=== PATIENT | male | born 1955 | race Two or more races ===

== ENCOUNTER 2020-05-19 12:56 | Emergency (ER) | payer OTHER ==
[2020-05-19 13:03] VITALS: TEMP 98.7; BMI 25.4
--- NOTE | 2020-05-19 13:28 | PDOC ---
History of Present Illness - General Chief Complaint: Weakness Stated Complaint: NUMBNESS/TINGLING Time Seen by Provider: 05/19/20 13:28 - History of Present Illness Initial Comments: 05/19/20 15:29 65 M with hx of cricket presented to the ED with legs weakness. Patient had progressive leg weakness for the past 2 weeks. However, he was able to walk and do his soccer exercise until 2 days ago. His left leg got tighten up, affecting the right leg and the way he walk. He fell often during the past two days. No LOC, no head hitting. Patient has been training everyday until the past two days. He denies loss of perineum sansation, midline spinal tenderness, trauma, recent hx of travel to the world or the [place]. Patient denies use of steroid or recent viral infection. He also endorse sharp, tingling sensation on both legs PMH: PSH: none Med: none ALlergy: none SS: denies smoke, alcohol, drug. PCP: none, but has insurance. ROS GENERAL/CONSTITUTIONAL: No fever or chills. No weakness. HEAD, EYES, EARS, NOSE AND THROAT: No change in vision. No ear pain or discharge. No sore throat. CARDIOVASCULAR: No chest pain or shortness of breath RESPIRATORY: No cough, wheezing, or hemoptysis. GASTROINTESTINAL: No nausea, vomiting, diarrhea or constipation. GENITOURINARY: No dysuria, frequency, or change in urination. MUSCULOSKELETAL: No joint or muscle swelling or pain. No neck or back pain. SKIN: No rash NEUROLOGIC: No headache, vertigo, loss of consciousness, +change in strength/sensation. ENDOCRINE: No increased thirst. No abnormal weight change HEMATOLOGIC/LYMPHATIC: No anemia, easy bleeding, or history of blood clots. ALLERGIC/IMMUNOLOGIC: No hives or skin allergy. PE BP 150/80, HR 90s GENERAL: Awake, alert, and fully oriented, in no acute distress HEAD: No signs of trauma, normocephalic, atraumatic EYES: PERRLA, EOMI, sclera anicteric, conjunctiva clear ENT: Auricles normal inspection, hearing grossly normal, nares patent, oropharynx clear without exudates. Moist mucosa NECK: Normal ROM, supple, no lymphadenopathy, JVD, or masses LUNGS: No distress, speaks full sentences, clear to auscultation bilaterally HEART: Regular rate and rhythm, normal S1 and S2, no murmurs, rubs or gallops, peripheral pulses normal and equal bilaterally. ABDOMEN: Soft, nontender, normoactive bowel sounds. No guarding, no rebound. No masses EXTREMITIES : bilateral osteroarteritist knees/crepitus upon bending. No trauma sign. Rigid movement. Normal pulses. normal sensation. NEUROLOGICAL: Cranial nerves II through XII grossly intact. Normal speech, normal gait, no focal sensorimotor deficits SKIN: Warm, Dry, normal turgor, no rashes or lesions noted Past History - Medical History Allergies/Adverse Reactions: Allergies Allergy/AdvReac Type Severity Reaction Status Date / Time No Known Allergies Allergy Verified 05/19/20 13:00 COPD: No Other medical history: RICKETS DISEASE - Surgical History Abdominal Surgery: (HERINA REPIAR ) - Immunization History Immunization Up to Date: Yes - Psycho-Social/Smoking History Smoking History: Never smoked - Substance Abuse Hx (Audit-C & DAST Scrn) How often the patient has a drink containing alcohol: Never Score: In Men: 4 or > Positive; In Women: 3 or > Positive: 0 Screen Result (Pos requires Nsg. Audit-10AR): Negative In the last yr the pt used illegal drug/Rx for NonMed reason: Yes Score: Yes response is considered Positive: 1 Screen Result (Positive result requires Nsg. DAST-10): Positive *Physical Exam - Vital Signs Last Vital Signs Temp Pulse Resp BP Pulse Ox 98.7 F 110 H 18 177/92 H 100 05/19/20 13:00 05/19/20 13:00 05/19/20 13:00 05/19/20 13:00 05/19/20 13:00 ED Treatment Course - LABORATORY CBC & Chemistry Diagram: 05/19/20 14:52 05/19/20 14:52 Medical Decision Making - Medical Decision Making 05/19/20 16:18 Valium 2 was given. CBC is normal . Xray showed no loss of heights, questionable L5, but no tenderness over the midline, low suspiciion of compression. CMP pending. Referred to PCP and ortho and neurologist. 05/19/20 16:44 CMP showed hypophosphotemia, most likely due to ricket. Will replace PO4 by oral supplement. Must follow with PCP later. Discharge - Discharge Information Problems reviewed: Yes Clinical Impression/Diagnosis: Weakness Condition: Good Disposition: HOME - Follow up/Referral Referrals: Len Myers MD [Staff Physician] - Mehul Gonzalez MD [Staff Physician] - Kurtis Hseih DO [Staff Physician] - Adrianna Whaley MD [Staff Physician] - [facility] [place] [facility] [place]] - Patient Discharge Instructions Patient Printed Discharge Instructions: DI for Low Back Pain Additional Instructions: You were seen in the ED for complaints of leg weakness. In the ED you were evaluated with muscles injury, infection, compression. Your results were negative. There does not appear to be an acute need for immediate hospitalization. You are advised to follow up with your Primary Care Physician within 1 week. You were given a referral to PCP Dr. Whaley, or Dr. Myers . Bone Doctor Dr. Hsieh. Brain doctor Dr. Gonzalez. You should use tylenol OTC for pain control, or motrin over the counter. Please read the label, and don't overdose. Return to the ED immediately if you experience worsening pain, unable to walk, loss of sensation over the legs or the perineum, dizziness. - Post Discharge Activity
[2020-05-19] MEDS ORDERED: SODIUM CHLORIDE 0.9% 500 ML INFUS.BAG IV ONE (14:32)
[2020-05-19] MEDS ORDERED: diazePAM 2 MG TABLET PO ONE (14:45)
[2020-05-19] MEDS ORDERED: diazePAM 2 MG TABLET ONE (14:57)
--- NOTE | 2020-05-19 15:18 | PDOC ---
Documentation entered by Erinn Rock SCRIBE, acting as scribe for Lisa Vu MD. Lisa Vu MD: This documentation has been prepared by the freddyibePranav Ana, SCRIBE, under my direction and personally reviewed by me in its entirety. I confirm that the documentation accurately reflects all work, treatment, procedures, and medical decision making performed by me. Attending Attestation - Resident Resident Name: Jose J Stuart - ED Attending Attestation I have performed the following: I have examined & evaluated the patient, The case was reviewed & discussed with the resident, I agree w/resident's findings & plan, Exceptions are as noted - HPI HPI: 05/19/20 13:30 65-year-old male history of rickets disease here today complaining of lower extremity pain. 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 He states that over the last few weeks the pain is become more severe he noticed it often from sitting prolonged periods are going from a sitting to a standing he f eels the pain shoots down into his thigh he does also get tingling in bilateral toes no new bowel or bladder incontinence no fevers no chills no trauma no new medications patient has never seen an orthopedist denies any hematuria or changes to his urine was able to ambulate today to the ED denies pain currently but says that the pain comes and goes with movement.. Patient denies: Allergies: NKDA 05/19/20 15:14 - Physicial Exam PE: 05/19/20 15:15 Awake alert no acute distress lungs are clear bilaterally heart is regular 30 murmurs rubs or gallops abdomen is soft and nontender pelvis is stable patient has full range of motion of bilateral hips. Bilateral knees are noticed for arthritic deformities and bulging joints there is crepitus on flexion-extension Anne Flood able to flex the knee to 90 degrees however no effusion noted no tension or clonus noted in his calf or thigh muscle. Ankles have full range of motion bilaterally patient has 2+ DP PT pulses bilaterally. Neurologically his sensation is intact throughout bilateral lower extremities with absence of saddle anesthesia. No midline spinal tenderness the TLS spine - Medical Decision Making 05/19/20 15:16 65-year-old male history of rickets here complaining of low back pain and bilateral hip joint pain radiating to his thighs differential includes a thigh spasm or muscle spasm possibly from electrolyte abnormalities related to his rickets considerations for hyper hypokalemia hypocalcemia rhabdo also considered due to his extensive workouts states he works out up to 6 hours a day sometimes plan CBC CMP total CK x-rays of his LS spine and pelvis. Patient will also be likely referred to an orthopedist as he has likely chronic joint destruction in early premature arthritis secondary to his rickets disease. Given Valium for muscle relaxation Discharge - Discharge Information Problems reviewed: Yes Clinical Impression/Diagnosis: Weakness Condition: Good Disposition: HOME - Follow up/Referral Referrals: [facility] [place] [facility] [place] [Provider Group] Len Myers MD [Staff Physician] - Mehul Gonzalez MD [Staff Physician] - Kurtis Hsieh DO [Staff Physician] - Adrianna Whaley MD [Staff Physician] - - Patient Discharge Instructions Patient Printed Discharge Instructions: DI for Low Back Pain Additional Instructions: You were seen in the ED for complaints of leg weakness. In the ED you were evaluated with muscles injury, infection, compression. Your results were negative. There does not appear to be an acute need for immediate hospitalization. You are advised to follow up with your Primary Care Physician within 1 week. You were given a referral to PCP Dr. Whaley, or Dr. Myers . Bone Doctor Dr. Hsieh. Brain doctor Dr. Gonzalez. You should use tylenol OTC for pain control, or motrin over the counter. Please read the label, and don't overdose. Return to the ED immediately if you experience worsening pain, unable to walk, loss of sensation over the legs or the perineum, dizziness. - Post Discharge Activity
[2020-05-19 15:38] LABS: BASO % 0.6 % (0-2.0); HEMATOCRIT 42.4 % (35.4-49); HEMOGLOBIN 13.9 GM/dL (11.7-16.9); LYMPH % 19.7 % (8-40); MCHC 32.9 g/dl (32.0-35.9); MEAN CELL VOLUME 94.3 fl (80-96); MEAN PLT VOLUME 8.4 fl (7.5-11.1); MONO % 9.3 % (3.8-10.2); NEUT % 69.4 % (42.8-82.8); PLATELET COUNT 280 K/MM3 (134-434); RDW 14.2 % (11.9-15.9)
[2020-05-19 16:23] LABS: ALBUMIN 3.8 g/dl (3.4-5.0); BILIRUBIN,TOTAL 0.5 mg/dL (0.2-1); BLOOD UREA NITROGEN 11.8 mg/dL (7-18); CREATININE 0.7 mg/dL (0.55-1.3); MAGNESIUM 2.2 mg/dL (1.8-2.4); PHOSPHOROUS 1.5 mg/dL (2.5-4.9); POTASSIUM 4.2 mmol/L (3.5-5.1); TOT PROT 7.1 g/dl (6.4-8.2)
[2020-05-19] MEDS ORDERED: NAPH,MB-DB/K PH,MBDB POWDER PACKET PO ONE (16:42)
[2020-05-19] MEDS ORDERED: NAPH,MB-DB/K PH,MBDB POWDER PACKET ONE (16:59)
[2020-05-19 18:06] VITALS: BP 146/78; PULSE 70
--- NOTE | 2020-05-21 18:43 | EKG ---
Test Reason : Blood Pressure : / mmHG Vent. Rate : 088 BPM Atrial Rate : 088 BPM P-R Int : 178 ms QRS Dur : 092 ms QT Int : 358 ms P-R-T Axes : 063 012 027 degrees QTc Int : 433 ms NORMAL SINUS RHYTHM LEFT ATRIAL ENLARGEMENT BORDERLINE ECG NO PREVIOUS ECGS AVAILABLE Confirmed by MD MIA, HENOK ([id number]) on 05/21/2020 6:43:13 PM Referred By: Confirmed By:HENOK BELLAMY MD
== END 2020-05-19 18:05 | disposition home or self-care (01) ==
LOC: JER 12:56
DX: M62.81 Muscle weakness (generalized) (principal)
CPT/HCPCS: 36415; 72100-TC-FY; 80053; 82550; 83735; 84100; 84443; 85025; 93005; 93010; 99285-25

== ENCOUNTER 2020-06-20 14:09 | Emergency (ER) | payer OTHER ==
--- NOTE | 2020-06-20 14:17 | PDOC ---
Rapid Medical Evaluation Time Seen by Provider: 06/20/20 14:16 Medical Evaluation: Allergies Allergy/AdvReac Type Severity Reaction Status Date / Time No Known Allergies Allergy Verified 05/19/20 13:00 06/20/20 14:17 I have performed a brief in-person evaluation of this patient The patient presents with a chief complaint of:h/o cricket, here w/ complaint that he is unable to bear weight 2/2 b/l LE weakness and sensory changes. Was seen by outside neuro this am and sent in for Thoracic and LS MRI r/o cord compression (pt has MD's note on his person). Pt was seen in ER 05/25 w/ similar complaints and had LS xray which showed some wedging and minimal central compression. No incentive or saddle anesthesia at this time Pertinent physical exam findings:sitting in wheelchair I have ordered the following:labs The patient will proceed to the ED for further evaluation 06/20/20 14:19 Discharge Disposition - Diagnosis Unable to ambulate - Referrals - Patient Instructions - Post Discharge Activity
[2020-06-20 14:36] VITALS: BMI 22.8
--- NOTE | 2020-06-20 15:25 | PDOC ---
History of Present Illness - General Chief Complaint: Revisit,Radiology Variance Stated Complaint: SENT BY PCP/THORACIC SPINE Time Seen by Provider: 06/20/20 14:16 - History of Present Illness Initial Comments: 06/20/20 15:10 HPI 65y/o M hx of rickets, presents to the ED with bilateral lower extremity weakness/tingling. Pt fell 3 months ago, and initially had numbness and tingling confined to his left buttock and left upper thigh.Since then his symptoms have spread to both extremities and he has had increased difficulty walking. requiring assistance to ambulate in the last 2-3weeks, and experiencing erectile dysfunction pt endorses saddle anesthesia,lower back tightness. denies: bowel/bladder incontinence, fevers, chills,abdominal pain, nausea, vomting PMHx: as noted above ROS: as noted SHx: Denies Etoh, IVDA, tobacco use Allergies: NKDA ROS: GENERAL/CONSTITUTIONAL: No fever or chills. No weakness. HEAD, EYES, EARS, NOSE AND THROAT: No change in vision. No ear pain or discharge. No sore throat. CARDIOVASCULAR: No chest pain or shortness of breath RESPIRATORY: No cough, wheezing, or hemoptysis. GASTROINTESTINAL: No nausea, vomiting, diarrhea or constipation. GENITOURINARY: No dysuria, frequency, or change in urination. MUSCULOSKELETAL: No joint or muscle swelling or pain. No neck or back pain. SKIN: No rash NEUROLOGIC: No headache, vertigo, loss of consciousness, or change in strength/sensation. ENDOCRINE: No increased thirst. No abnormal weight change HEMATOLOGIC/LYMPHATIC: No anemia, easy bleeding, or history of blood clots. ALLERGIC/IMMUNOLOGIC: No hives or skin allergy. PE: GENERAL: Awake, alert, and fully oriented, in no acute distress HEAD: No signs of trauma, normocephalic, atraumatic EYES: PERRLA, EOMI, sclera anicteric, conjunctiva clear ENT: Auricles normal inspection, hearing grossly normal, nares patent, oropharynx clear without exudates. Moist mucosa NECK: Normal ROM, supple, no lymphadenopathy, JVD, or masses LUNGS: No distress, speaks full sentences, clear to auscultation bilaterally HEART: Regular rate and rhythm, normal S1 and S2, no murmurs, rubs or gallops, peripheral pulses normal and equal bilaterally. ABDOMEN: Soft, nontender, normoactive bowel sounds. No guarding, no rebound. No masses EXTREMITIES : Normal inspection, Normal range of motion, no edema. No clubbing or cyanosis RECTAL: rectal tone intact. NEUROLOGICAL: Cranial nerves II through XII grossly intact. no spinal tenderness. requires assistance to ambulate. saddle anesthesia. negative SLR. 5/5 strength lower extremities SKIN: Warm, Dry, normal turgor, no rashes or lesions noted MDM DDx including but not limited to: cauda equina, conus medullaris, spinal cord compression Workup: labs, MRI (thoracic & lumbar) TX: Scores - HEART score - EKG: normal sinus rhythm, HR bpm, FL ms, QRS ms, QTc ms ED course meds: Re-assessment: PT left the ED AMA angry and irritated because he had been waiting "too long" for MRI radiology report requested to have his IV pulled out and left pt ambulating with assistance of his partner. Past History - Medical History Allergies/Adverse Reactions: Allergies Allergy/AdvReac Type Severity Reaction Status Date / Time No Known Allergies Allergy Verified 06/20/20 14:17 Home Medications: Ambulatory Orders NK [No Known Home Medication] 06/20/20 COPD: No - Surgical History Abdominal Surgery: (HERINA REPIAR INFANT) - Immunization History Immunization Up to Date: Yes - Psycho-Social/Smoking History Smoking History: Smoker current status UNK *Physical Exam - Vital Signs Last Vital Signs Temp Pulse Resp BP Pulse Ox 78 20 189/72 H 98 06/20/20 14:19 06/20/20 14:19 06/20/20 14:19 06/20/20 14:19 ED Treatment Course - LABORATORY CBC & Chemistry Diagram: 06/20/20 15:25 06/20/20 14:22 Discharge - Discharge Information Problems reviewed: Yes Clinical Impression/Diagnosis: Anesthesia Condition: Guarded Disposition: AGAINST MEDICAL ADVICE - Follow up/Referral - Patient Discharge Instructions - Post Discharge Activity
--- NOTE | 2020-06-20 15:32 | PDOC ---
Documentation entered by Milana Castanon SCRIBE, acting as scribe for Nacho Casillas MD. Nacho Casillas MD: This documentation has been prepared by the Kina sandoval Brenda, SCRIBE, under my direction and personally reviewed by me in its entirety. I confirm that the documentation accurately reflects all work, treatment, procedures, and medical decision making performed by me. Attending Attestation - Resident Resident Name: Yoni Hernández - ED Attending Attestation I have performed the following: I have examined & evaluated the patient, The case was reviewed & discussed with the resident, I agree w/resident's findings & plan, Exceptions are as noted - HPI HPI: 65 years old past medical history significant for rickets presents to the ED with of lower extremity weakness and tingling, this has been going on for 3 months. He fell 3 months ago and is had some tingling to his left buttock and numbness has progressively worsening. No incontinence endorses saddle anesthesia and low back tightness. Sent to emergency department by his neurologist for MRI thoracic and lumbar spine. Symptoms are moderate and gradually worsening over the last 3 months. Endorses erectile dysfunction. - Physicial Exam PE: 06/20/20 15:32 Vitals: Triage Vital signs reviewed General Appearance: No acute distress, well nourished well developed, Head: Atraumatic, Eyes: Pupils equal reactive round, extraocular movement intact Cardiac: Regular rate and rhythym, no murmurs, no rubs, no gallops, Lungs: Clear to auscultation bilateral, good air movement bilaterally, Abdomen: Soft, non distended, normal bowel sounds, non tender to palpation Extremities: Full range of motion to all extremities, no cyanosis, clubbing, or edema Skin: Warm and dry, no rashes or lesions, no rash, no petechiae Neuro: AOX3; cranial Nerves 2-12 grossly intact, strength intact to all extremities, sensation intact to all extremities, Slightly decreased sensation around groin and perineum, Deep tendon reflexes intact Psych: Normal mood, normal affect - Medical Decision Making 06/20/20 15:33 65 years old with weakness when ambulating and progressively worsening decreased sensation around perineum sent to ED for MRI of lumbar spine and thoracic spine to rule out cord involvement. No weakness on lower extremity exam in bed, reflexes intact, good rectal tone, + saddle anesthesia, difficulty with ambulation (chronic/gradual progressive over 3 months) Dr. Napier to follow up MRI and reassess 06/20/20 19:21 Discharge - Discharge Information Problems reviewed: Yes Clinical Impression/Diagnosis: Anesthesia, Weakness Condition: Guarded Disposition: AGAINST MEDICAL ADVICE - Follow up/Referral - Patient Discharge Instructions - Post Discharge Activity
--- OUTSIDE RECORDS SUMMARY | 2020-06-20 16:29 | XMS ---
:1955 Author Organization [facility] Support Name Relationship Address Phone LILY COPELAND/OTHER IRENE SAEED [address] [address] RE Unavailable Unavailable Unavailable DAVID CHAMBERS FAMILY/OTHER [address] [id number] [place] [address] DAVID CHAMBERS Other [facility] [place] [address] Re-disclosure Warning The records that you are about to access may contain information from federally- assisted alcohol or drug abuse programs. If such information is present, then the following federally mandated warning applies: This information has been disclosed to you from records protected by federal confidentiality rules (42 CFR part 2). The federal rules prohibit you from making any further disclosure of this information unless further disclosure is expressly permitted by the written consent of the person to whom it pertains or as otherwise permitted by 42 CFR part 2. A general authorization for the release of medical or other information is NOT sufficient for this purpose. The Federal rules restrict any use of the information to criminally investigate or prosecute any alcohol or drug abuse patient.The records that you are about to access may contain highly sensitive health information, the redisclosure of which is protected by Article 27-F of the [facility] Public Health law. If you continue you may haveaccess to information: Regarding HIV / AIDS; Provided by facilities licensed or operated by the [facility] Office of Mental Health; or Provided by the [facility] Office for People With Developmental Disabilities. If such information is present, then the following [facility] mandated warning applies: This information has been disclosed to you from confidential records which are protected by state law. State law prohibits you from making any further disclosure of this information without the specific written consent of the person to whom it pertains, or as otherwise permitted by law. Any unauthorized further disclosure in violation of state law may result in a fine or mcc sentence or both. A general authorization for the release of medical or other information is NOT sufficient authorization for further disclosure. Insurance Providers Payer name Policy type Policy ID Covered Covered alliance party's Policy P aby / Coverage alliance party ID relationship to Guerra Inf ormation type guerra [facility] [id number] CARE
[2020-06-20 16:39] LABS: INR 0.94 (0.83-1.09); PROTHROMBIN TIME (PATIENT) 11.1 SEC (9.7-13.0)
[2020-06-20 16:40] LABS: BASO % 0.6 % (0-2.0); EOS % 0.7 % (0-4.5); HEMOGLOBIN 14.4 GM/dL (11.7-16.9); LYMPH % 20.4 % (8-40); MCH 31.4 pg (25.7-33.7); MCHC 33.5 g/dl (32.0-35.9); MEAN CELL VOLUME 93.9 fl (80-96); MEAN PLT VOLUME 8.3 fl (7.5-11.1); NEUT % 70.3 % (42.8-82.8); PLATELET COUNT 320 K/MM3 (134-434); RBC 4.57 M/mm3 (4.00-5.60); RDW 13.9 % (11.9-15.9); WHITE BLOOD COUNT 8.8 K/mm3 (4.0-10.0)
[2020-06-20 16:49] LABS: ALBUMIN 4.3 g/dl (3.4-5.0); BILIRUBIN,TOTAL 0.3 mg/dL (0.2-1); BLOOD UREA NITROGEN 16.2 mg/dL (7-18); CALCIUM 9.3 mg/dL (8.5-10.1); CREATININE 0.9 mg/dL (0.55-1.3); POTASSIUM 4.8 mmol/L (3.5-5.1); TOT PROT 8.1 g/dl (6.4-8.2)
[2020-06-20 17:39] VITALS: BP 142/82; PULSE 72; TEMP 98.1
[2020-06-20 17:56] LABS: EPI CELLS 4 /uL (0-25.1); HYALINE CASTS 0 /uL (0-3.1); URINE APPEARANCE CLEAR; URINE BACTERIA 11 /uL (0-1359); URINE BILIRUBIN NEGATIVE (NEGATIVE); URINE COLOR YELLOW; URINE GLUCOSE (UA) NEGATIVE (NEGATIVE); URINE KETONE NEGATIVE (NEGATIVE); URINE LEUK ESTERASE TRACE (NEGATIVE); URINE NITRITE NEGATIVE (NEGATIVE); URINE PROTEIN NEGATIVE (NEGATIVE); URINE RBC 257 /uL (0-23.9); URINE UROBILINOGEN 0.2 mg/dL (0.2-1.0); URINE WBC 11 /uL (0-25.8)
== END 2020-06-20 21:44 | disposition left against medical advice (07) ==
LOC: JER 14:09
DX: R20.0 Anesthesia of skin (principal)
CPT/HCPCS: 36415; 72157-TC; 72158-TC; 80053; 81003; 85025; 85610; 86850; 86900; 86901; 99285-25; A9579

== ENCOUNTER 2020-06-26 07:52 | Inpatient (IN) | payer OTHER ==
[2020-06-26 07:58] VITALS: BMI 26.9
--- NOTE | 2020-06-26 08:13 | PDOC ---
History of Present Illness - General Chief Complaint: Chronic pain Stated Complaint: BACK PAIN Time Seen by Provider: 06/26/20 08:01 - History of Present Illness Initial Comments: 06/26/20 09:17 65 years old re-presents to the emergency department for spinal cord compression. Patient has had 3 months history of progressively worsening weakness when ambulating saddle anesthesia and erectile dysfunction was sent to the emergency department last Friday by his neurologist Dr. Rene for MRI. Patient signed out of hospital AGAINST MEDICAL ADVICE prior to receiving results. 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 Was able to return today. No progression of symptoms per the patient since his MRI on Friday. Neurosurgery to be consulted. Denies fever chills chest pain shortness of breath nausea vomiting diarrhea Past History - Medical History Allergies/Adverse Reactions: Allergies Allergy/AdvReac Type Severity Reaction Status Date / Time No Known Allergies Allergy Verified 06/26/20 07:54 Home Medications: Ambulatory Orders NK [No Known Home Medication] 06/20/20 COPD: No - Surgical History Abdominal Surgery: ([facility]) - Immunization History Immunization Up to Date: Yes - Psycho-Social/Smoking History Smoking History: Never smoked Have you smoked in the past 12 months: No - Substance Abuse Hx (Audit-C & DAST Scrn) How often the patient has a drink containing alcohol: Never Score: In Men: 4 or > Positive; In Women: 3 or > Positive: 0 Screen Result (Pos requires Nsg. Audit-10AR): Negative In the last yr the pt used illegal drug/Rx for NonMed reason: No Score: Yes response is considered Positive: 0 Screen Result (Positive result requires Nsg. DAST-10): Negative Review of Systems - Review of Systems Comments:: 06/26/20 09:17 ROS: A complete review of 10 out of 10 review of systems is taken and is negative apart from what is previously mentioned below and in the HPI. *Physical Exam - Vital Signs Last Vital Signs Temp Pulse Resp BP Pulse Ox 98.5 F 88 18 158/84 100 06/26/20 07:54 06/26/20 07:54 06/26/20 07:54 06/26/20 07:54 06/26/20 07:54 - Physical Exam 06/26/20 09:17 Vitals: Triage Vital signs reviewed General Appearance: No acute distress, well nourished well developed, Head: Atraumatic, Cardiac: Regular rate and rhythym, Lungs: Clear to auscultation bilateral, good air movement bilaterally, Abdomen: Soft, non distended, normal bowel sounds, non tender to palpation Extremities: Full range of motion to all extremities, no cyanosis, clubbing, or edema Skin: Warm and dry, no rashes or lesions, no rash, no petechiae Neuro: AOX3; cranial Nerves 2-12 grossly intact, strength intact to all extremities, sensation intact to all extremities, Gait weakness with ambulation, positive saddle anesthesia Psych: Normal mood, normal affect ED Treatment Course - LABORATORY CBC & Chemistry Diagram: 06/26/20 08:49 06/26/20 08:49 Medical Decision Making - Medical Decision Making 06/26/20 09:18 65 years old has been n.p.o. after midnight not on anticoagulation presents with MRI findings of cord compression. Symptoms of been gradual progressive over the last 3 months Was started over the weekend on Decadron by his neurologist Dr. Calabrese neurosurgery consulted 7:30 AM Plan is OR today Preop labs ordered Case discussed with hospitalist We will admit to medicine for further management and definitive surgery today. Discharge - Discharge Information Problems reviewed: Yes Clinical Impression/Diagnosis: Cord compression - Admission Yes - Follow up/Referral - Patient Discharge Instructions - Post Discharge Activity
[2020-06-26 09:11] LABS: INR 0.88 (0.83-1.09); PROTHROMBIN TIME (PATIENT) 10.4 SEC (9.7-13.0)
[2020-06-26 09:14] LABS: ACTIVATED PTT 29.2 SECONDS (25.2-36.5)
[2020-06-26] MEDS ORDERED: SODIUM CHLORIDE 1,000 ML IV SCH (09:15)
--- OUTSIDE RECORDS SUMMARY | 2020-06-26 09:15 | XMS ---
:1955 Author Organization [facility] Support Name Relationship Address Phone LILY COPELAND/OTHER IRENE SAEED [address] [address] RE Unavailable Unavailable Unavailable DAVID CHAMBERS FAMILY/OTHER [id number] [place] [address] DAVID CHAMBERS Other [facility] [place] [address] Re-disclosure Warning The records that you are [...] is protected by Article 27-F of the [facility] Public Health law. If you continue you may haveaccess to information: Regarding HIV / AIDS; Provided by facilities licensed or operated by the [facility] Office of Mental Health; or Provided by the [facility] Office for People With Developmental Disabilities. If such information is present, then the following [facility] mandated warning applies: This information has [...] law may result in a fine or shelter sentence or both. A general authorization for the release of medical or other information is NOT sufficient authorization for further disclosure. Insurance Providers Payer name Policy type Policy ID Covered Covered republican's Policy P aby / Coverage republican ID relationship to [employer] ormation type [facility] [id number] 0000 CARE
[2020-06-26 09:33] LABS: BILIRUBIN,TOTAL 0.4 mg/dL (0.2-1); BLOOD UREA NITROGEN 19.2 mg/dL (7-18); CALCIUM 9.2 mg/dL (8.5-10.1); CREATININE 0.8 mg/dL (0.55-1.3); POTASSIUM 4.4 mmol/L (3.5-5.1)
[2020-06-26 10:13] LABS: BASO % 0.1 % (0-2.0); HEMOGLOBIN 13.4 GM/dL (11.7-16.9); LYMPH % 7.6 % (8-40); MCH 30.9 pg (25.7-33.7); MCHC 32.8 g/dl (32.0-35.9); MEAN CELL VOLUME 94.4 fl (80-96); NEUT % 85.3 % (42.8-82.8); PLATELET COUNT 344 K/MM3 (134-434); RBC 4.34 M/mm3 (4.00-5.60); RDW 13.9 % (11.9-15.9); WHITE BLOOD COUNT 15.1 K/mm3 (4.0-10.0)
--- NOTE | 2020-06-26 11:14 | HP ---
CHIEF COMPLAINT: PCP: HISTORY OF PRESENT ILLNESS: 65M w/ pmh of Rickets presents to [facility] for concern of increasing severity BLE dysfunction, with emergent imaging(06/20/20) indicating cord compression of the T-spine. Was initially seen at [facility] on 05/19/20 for leg tightness, and episodes of falling. Was told it was related to knee OA and told to fu with a PCP and a neurologist. Has fallen 3x in the past weeks. First when playing soccer , performing cross-over, then fell with play-tusseling with son, then fell when using the restroom. Has had leg weakness when planted for push-ups, leg lunges, and now even walking. Thinks his gait is wobbly, feels like hes walking on a ball. Has shooting pain down legs. Has numbness in lower back. Has loose knees d/t to rickets. Has tightness in the buttocks. Denies change in BUE strength. In the past, has engaged in multiple years of contact sports such as martial arts(fell hard 20ys prior, with trunk pain), football(grade schoole to highschool), boxing([age]y/o), wrestling(high school for 4-5ys). Has been playing soccer for 3ys. Denies fall from height, MVC. Denies decrease in leg bulk. Feels like urine is trapped inside, has urinary hestiancy. Denies changes in BM. Has decreased sensation in the perineum while wiping. Thinks his erection will go and come away during the act of coitus. Has been taking dexamethasone by outpatient neurology(Beatrice?), which helped with the buttocks tightness. Has been quarntining at home. 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 -06/20/20: sent in from Neuro(Beatrice?) for Tspine/Lspine MRI to r/o cord compression. AMA after waiting so long -06/22/20: had [place] [employer] contact pt for MRI results. Pt has 7y/o autistic son and could not leave job, so childcare could not be arranged until Friday ER course was notable for: -98.5F, 88, 158/84, 18 -WBC 15.1 -AP 126 -consulted David Bear -XR Lspine(05/19/20): some vertebral wedging of lower thoracic and upper lumbar spine -MRI T-spine/L-spine(05/20/20): multilevel significant b/l ligamentum flavum hypertrophy, resulting in severe canal stenosis at T8-T9 level, displacing the thoracic cord w/ cord compression and minimal intradural cord Recent Travel: denies PAST MEDICAL HISTORY: rickets PAST SURGICAL HISTORY: b/l hernia repair Social History: Smoking: daily MJ Alcohol: denies Drugs: denies Allergies No Known Allergies Allergy (Verified 06/26/20 07:54) HOME MEDICATIONS: Home Medications Medication Instructions Recorded NK [No Known Home Medication] 06/20/20 REVIEW OF SYSTEMS CONSTITUTIONAL: Absent: fever, chills, diaphoresis, generalized weakness, malaise, loss of appetite, weight change HEENT: Absent: rhinorrhea, nasal congestion, throat pain, throat swelling, difficulty swallowing, mouth swelling, ear pain, eye pain, visual changes CARDIOVASCULAR: Absent: chest pain, syncope, palpitations, irregular heart rate, lightheadedness, peripheral edema RESPIRATORY: Absent: cough, shortness of breath, dyspnea with exertion, orthopnea, wheezing, stridor, hemoptysis GASTROINTESTINAL: Absent: abdominal pain, abdominal distension, nausea, vomiting, diarrhea, constipation, melena, hematochezia GENITOURINARY: urinary hesitancy Absent: dysuria, frequency, urgency, hematuria, flank pain, genital pain MUSCULOSKELETAL: Absent: myalgia, arthralgia, joint swelling, back pain, neck pain SKIN: Absent: rash, itching, pallor HEMATOLOGIC/IMMUNOLOGIC: Absent: easy bleeding, easy bruising, lymphadenopathy, frequent infections ENDOCRINE: Absent: unexplained weight gain, unexplained weight loss, heat intolerance, cold intolerance NEUROLOGIC: decr sensation of perineum, weakness of BLE Absent: headache, focal weakness or paresthesias, dizziness, unsteady gait, seizure, mental status changes, bladder or bowel incontinence PSYCHIATRIC: Absent: anxiety, depression, suicidal or homicidal ideation, hallucinations. PHYSICAL EXAMINATION Vital Signs - 24 hr 06/26/20 07:54 Temperature 98.5 F Pulse Rate 88 Respiratory 18 Rate Blood Pressure 158/84 O2 Sat by Pulse 100 Oximetry (%) GENERAL: Awake, alert, and fully oriented, in no acute distress. Muscular bulk of upper trunk and BUE. Short stature HEAD: Normal with no signs of trauma. EYES: Pupils equal, round and reactive to light, extraocular movements intact, sclera anicteric, conjunctiva clear. No lid lag. EARS, NOSE, THROAT: Ears normal, nares patent, oropharynx clear without exudates. Moist mucous membranes. NECK: Normal range of motion, supple without lymphadenopathy, JVD, or masses. LUNGS: Breath sounds equal, clear to auscultation bilaterally. No wheezes, and no crackles. No accessory muscle use. HEART: Regular rate and rhythm, normal S1 and S2 without murmur, rub or gallop. ABDOMEN: Soft, nontender, not distended, normoactive bowel sounds, no guarding, no rebound, no masses. Suprapubic fullness with palpation Rectal: loss of anal wink, weak rectal tone; firm stool felt in rectal vault MUSCULOSKELETAL: Normal range of motion at all joints. No bony deformities or tenderness. No CVA tenderness. UPPER EXTREMITIES: 2+ pulses, warm, well-perfused. No cyanosis. No clubbing. No peripheral edema. LOWER EXTREMITIES: 2+ pulses, warm, well-perfused. No calf tenderness. No peripheral edema. Decreased Leg bulk NEUROLOGICAL: Cranial nerves II-XII intact. Weakness 4/5 of BLE in hip flexion/extension, knee flexion/extension. Patellar reflex intact. Upgoing babinski relfexes b/l. Weakness with standing. Unsteady gait. SKIN: Warm, dry, normal turgor, no rashes or lesions noted, normal capillary refill. Laboratory Results - last 24 hr 06/26/20 06/26/20 06/26/20 08:39 08:49 08:49 WBC 15.1 H RBC 4.34 Hgb 13.4 Hct 41.0 MCV 94.4 MCH 30.9 MCHC 32.8 RDW 13.9 Plt Count 344 MPV 9.0 Absolute Neuts (auto) 12.9 H Neutrophils % 85.3 H D Lymphocytes % 7.6 L D Monocytes % 7.0 Eosinophils % 0.0 D Basophils % 0.1 Nucleated RBC % 0 PT with INR 10.40 INR 0.88 PTT (Actin FS) 29.2 Sodium Potassium Chloride Carbon Dioxide Anion Gap BUN Creatinine Est GFR (CKD-EPI)AfAm Est GFR (CKD-EPI)NonAf Random Glucose Calcium Total Bilirubin AST ALT Alkaline Phosphatase Total Protein Albumin SARS-CoV-2 (PCR) Negative Blood Type Antibody Screen Crossmatch 06/26/20 06/26/20 08:49 08:49 WBC RBC Hgb Hct MCV MCH MCHC RDW Plt Count MPV Absolute Neuts (auto) Neutrophils % Lymphocytes % Monocytes % Eosinophils % Basophils % Nucleated RBC % PT with INR INR PTT (Actin FS) Sodium 141 Potassium 4.4 Chloride 108 H Carbon Dioxide 28 Anion Gap 5 L BUN 19.2 H Creatinine 0.8 Est GFR (CKD-EPI)AfAm 110.19 Est GFR (CKD-EPI)NonAf 95.07 Random Glucose 108 H Calcium 9.2 Total Bilirubin 0.4 AST 17 ALT 21 Alkaline Phosphatase 126 H Total Protein 8.0 Albumin 4.0 SARS-CoV-2 (PCR) Blood Type Cancelled Antibody Screen Cancelled Crossmatch See Detail ASSESSMENT/PLAN: 65M w/ pmh of Rickets presents to [facility] for concern of increasing severity of BLE dysfunction, with emergent imaging(06/20/20) indicating cord compression of the T-spine. NSX(Marianela) onboard for emergent operative treatment #T-spine cord compression > XR Lspine(05/19/20): some vertebral wedging of lower thoracic and upper lumbar spine > MRI T-spine/L-spine(05/20/20): multilevel significant b/l ligamentum flavum hypertrophy, resulting in severe canal stenosis at T8-T9 level, displacing the thoracic cord w/ cord compression and minimal intradural cord - NPO - dexamethasone as per NSX - NSX consult(Marianela): --recs pending --surgery planned for 06/26/20 #leukocytosis --likely 2/2 to recent dexamethasone usage > WBC 15.1 > UA and UCX pending - trend WBC FEN - NS @83 - NPO DVT PPX: - SCDs, for pending surgery Family Medical History Family History: Denies (is adopted, doesn't know his family history) Visit type - Emergency Visit Emergency Visit: Yes ED Registration Date: 06/26/20 Care time: The patient presented to the Emergency Department on the above date and was hospitalized for further evaluation of their emergent condition. - New Patient This patient is new to me today: Yes Date on this admission: 06/26/20 - Critical Care Critical Care patient: No ATTENDING PHYSICIAN STATEMENT I saw and evaluated the patient. I reviewed the resident's note and discussed the case with the resident. I agree with the resident's findings and plan as documented. SUBJECTIVE: OBJECTIVE: ASSESSMENT AND PLAN:
--- NOTE | 2020-06-26 14:07 | EKG ---
Test Reason : Blood Pressure : / mmHG Vent. Rate : 078 BPM Atrial Rate : 078 BPM P-R Int : 172 ms QRS Dur : 084 ms QT Int : 368 ms P-R-T Axes : 073 015 027 degrees QTc Int : 419 ms NORMAL SINUS RHYTHM NORMAL ECG WHEN COMPARED WITH ECG OF 19-MAY-2020 13:29, NO SIGNIFICANT CHANGE WAS FOUND Confirmed by YANIQUE MURPHY MD ([id number]) on 06/26/2020 2:07:19 PM Referred By: Confirmed By:YANIQUE MURPHY MD
[2020-06-26] MEDS ORDERED: GENTAMICIN SO4 80 MG/2 ML VIAL ONE (14:11)
[2020-06-26] MEDS ORDERED: LIDOCAINE HCL 1% EPINEPHRINE 1:200,000 30 ML VIAL (PF) ONE (14:11)
[2020-06-26] MEDS ORDERED: VANCOMYCIN 1,000 MG VIAL (RESTRICTED TO ID ONLY) ONE (14:11)
[2020-06-26 14:45] LABS: EPI CELLS 8 /uL (0-25.1); HYALINE CASTS 1 /uL (0-3.1); PH,URINE 5.5 (5.0-8.0); URINE APPEARANCE CLEAR; URINE BACTERIA 11 /uL (0-1359); URINE BILIRUBIN NEGATIVE (NEGATIVE); URINE COLOR YELLOW; URINE GLUCOSE (UA) NEGATIVE (NEGATIVE); URINE KETONE NEGATIVE (NEGATIVE); URINE LEUK ESTERASE NEGATIVE (NEGATIVE); URINE NITRITE NEGATIVE (NEGATIVE); URINE PROTEIN NEGATIVE (NEGATIVE); URINE RBC 4 /uL (0-23.9); URINE UROBILINOGEN 0.2 mg/dL (0.2-1.0); URINE WBC 11 /uL (0-25.8)
[2020-06-26] MEDS ORDERED: PROPOFOL 20 ML ONE ×3 (14:51→20:01)
[2020-06-26] MEDS ORDERED: ROCURONIUM BROMIDE 50 MG/5 ML SYRINGE ONE ×4 (14:52→19:54)
[2020-06-26] MEDS ORDERED: SUCCINYLCHOLINE CHLORIDE 200 MG/10 ML SYRINGE ONE (14:52)
[2020-06-26] MEDS ORDERED: fentaNYL CITRATE 250 MCG/5 ML VIAL ONE ×2 (14:55→19:56)
[2020-06-26] MEDS ORDERED: MIDAZOLAM HCL 2 MG/2 ML SINGLE DOSE VIAL ONE ×2 (14:55→19:56)
[2020-06-26] MEDS ORDERED: VANCOMYCIN 1,000 MG VIAL (RESTRICTED TO ID ONLY) IVPB ONE (15:00)
[2020-06-26] MEDS ORDERED: THROMBIN (BOVINE) 5,000 UNIT VIAL TP ONE ×2 (15:02→16:30)
[2020-06-26] MEDS ORDERED: BUPIVACAINE LIPOSOME/PF (EXPAREL) 266 MG/20 ML VIAL ONE (15:02)
[2020-06-26] MEDS ORDERED: ceFAZolin SODIUM 1 GM VIAL IVPB ONE ×2 (15:40→19:28)
[2020-06-26] MEDS ORDERED: ePHEDrine SULFATE 50 MG/1 ML AMPULE ONE (16:08)
[2020-06-26] MEDS ORDERED: LIDOCAINE 1%/EPI 1:100000 (20 ML MULTI DOSE VIAL) IJ ONE (16:15)
[2020-06-26] MEDS ORDERED: BACITRACIN 50,000 UNITS VIAL NR ONE (16:30)
[2020-06-26] MEDS ORDERED: GENTAMICIN SO4 80 MG/2 ML VIAL IVPB ONE (16:30)
[2020-06-26] MEDS ORDERED: HYDROmorphone HCl 2 MG/ML VIAL ONE (17:22)
[2020-06-26] MEDS ORDERED: NEOSTIGMINE METHYLSULFATE 0.5 MG/1 ML - 10 ML MDV ONE (20:09)
[2020-06-26] MEDS ORDERED: GLYCOPYRROLATE 0.2 MG/1 ML VIAL ONE (20:12)
[2020-06-26] MEDS ORDERED: BUPIVACAINE LIPOSOME/PF (EXPAREL) 266 MG/20 ML VIAL NR ONE (20:15)
[2020-06-26] MEDS ORDERED: BUPIVACAINE HCL/PF 0.5% (5 MG/ML) 30 ML VIAL IJ ONE (20:15)
[2020-06-26] MEDS ORDERED: ONDANSETRON 4 MG/2 ML VIAL IVPUSH PRN ×2 (21:29→23:36)
[2020-06-26] MEDS ORDERED: diphenhydrAMINE HCL 25 MG CAPSULE (FP) PO PRN ×3 (21:29→23:44)
[2020-06-26] MEDS ORDERED: LACTATED RINGERS SOLUTION 1,000 ML/1,000 ML INFUS.BAG IV SCH ×2 (21:30→23:36)
[2020-06-26] MEDS ORDERED: BENZOCAINE/MENTH/CETYLPYRD CL 1 EACH LOZENGE MM PRN ×3 (21:35→23:44)
[2020-06-26] MEDS ORDERED: FAMOTIDINE 20 MG TABLET PO PRN ×2 (21:35→23:36)
--- NOTE | 2020-06-26 21:40 | OP ---
Operative Note - Note: Operative Date: 06/26/20 Pre-Operative Diagnosis: Spinal cord compression Operation: T3-T10 decompression/fusion, incidental durotomy s/p muscle patch Findings: as dictated Implants: as dictated Post-Operative Diagnosis: Same as Pre-op Surgeon: David Bear Ticket Collector Or Usher: Keisha Bey Anesthesiologist/ASSISTANT FILM EDITOR: Charles Bynum Anesthesia: General, Spinal Estimated Blood Loss (mls): 730 (ml) Drains & Tubes with Location: MAN x1 Drains, Volume Out (mls): 300 (ML YELLOW URINE) Fluid Volume Replaced (mls): 3,000 (ML LR) Operative Report Dictated: Yes
[2020-06-26] MEDS ORDERED: HYDROmorphone *PCA* 10MG/50ML DISP.SYRIN ONE (21:46)
[2020-06-26] MEDS: HYDROmorphone *PCA* 10MG/50ML DISP.SYRIN PCA SCH (21:50)
[2020-06-26] MEDS ORDERED: DOCUSATE SODIUM 100 MG CAPSULE (FP) PO SCH (22:00)
[2020-06-26 22:29] LABS: BASO % 0.1 % (0-2.0); HEMATOCRIT 32.7 % (35.4-49); HEMOGLOBIN 10.7 GM/dL (11.7-16.9); LYMPH % 6.8 % (8-40); MCHC 32.7 g/dl (32.0-35.9); MEAN CELL VOLUME 94.8 fl (80-96); MEAN PLT VOLUME 8.4 fl (7.5-11.1); MONO % 9.7 % (3.8-10.2); NEUT % 83.4 % (42.8-82.8); PLATELET COUNT 234 K/MM3 (134-434); RBC 3.45 M/mm3 (4.00-5.60); RDW 14.3 % (11.9-15.9); WHITE BLOOD COUNT 16.3 K/mm3 (4.0-10.0)
--- NOTE | 2020-06-26 22:38 | PN ---
Teaching Attending Note Name of Resident: Delgado Peacock ATTENDING PHYSICIAN STATEMENT I saw and evaluated the patient. I reviewed the resident's note and discussed the case with the resident. I agree with the resident's findings and plan as documented. SUBJECTIVE: Patient seen and examined at bedside, admitted for acute cord compression needing urgent surgery, has had progressive sx for the past 1 month. OBJECTIVE: GA tired appearing, short stature, AAox3 HEENT NC/AT, EOMI, dry MM, no JVD Chest CTAB, no crackles CVS S1, S2+, RRR Abd Soft, NT, ND, BS+ Ext no LE edema, no calf tenderness, bowed legs with short stature Neuro 4/5 strength LE b/l, decreased sensation around perineal distribution, gait not observed Vital Signs (72 hours) 06/26/20 06/26/20 06/26/20 07:54 11:41 13:21 Temperature 98.5 F Pulse Rate 88 Pulse Rate [ 82 95 H Right Radial] Respiratory 18 18 18 Rate Blood Pressure 158/84 Blood Pressure 183/95 H 151/80 [Left Arm] O2 Sat by Pulse 100 100 100 Oximetry (%) 06/26/20 06/26/20 06/26/20 21:37 21:50 22:05 Temperature 98.3 F Pulse Rate 95 H 92 H 96 H Pulse Rate [ Right Radial] Respiratory 18 16 16 Rate Blood Pressure 150/84 158/77 162/72 Blood Pressure [Left Arm] O2 Sat by Pulse 100 100 100 Oximetry (%) 06/26/20 22:20 Temperature Pulse Rate 96 H Pulse Rate [ Right Radial] Respiratory 18 Rate Blood Pressure 160/80 Blood Pressure [Left Arm] O2 Sat by Pulse 100 Oximetry (%) Laboratory Results - last 24 hr 06/26/20 06/26/20 06/26/20 08:39 08:49 08:49 WBC 15.1 H RBC 4.34 Hgb 13.4 Hct 41.0 MCV 94.4 MCH 30.9 MCHC 32.8 RDW 13.9 Plt Count 344 MPV 9.0 Absolute Neuts (auto) 12.9 H Neutrophils % 85.3 H D Lymphocytes % 7.6 L D Monocytes % 7.0 Eosinophils % 0.0 D Basophils % 0.1 Nucleated RBC % 0 PT with INR 10.40 INR 0.88 PTT (Actin FS) 29.2 Sodium Potassium Chloride Carbon Dioxide Anion Gap BUN Creatinine Est GFR (CKD-EPI)AfAm Est GFR (CKD-EPI)NonAf Random Glucose Calcium Total Bilirubin AST ALT Alkaline Phosphatase Total Protein Albumin Urine Color Urine Appearance Urine pH Ur Specific [place] Urine Protein Urine Glucose (UA) Urine Ketones Urine Blood Urine Nitrite Urine Bilirubin Urine Urobilinogen Ur Leukocyte Esterase Urine WBC (Auto) Urine RBC (Auto) Urine Casts (Auto) U Epithel Cells (Auto) Urine Bacteria (Auto) SARS-CoV-2 (PCR) Negative Blood Type Antibody Screen Crossmatch 06/26/20 06/26/20 06/26/20 08:49 08:49 13:27 WBC RBC Hgb Hct MCV MCH MCHC RDW Plt Count MPV Absolute Neuts (auto) Neutrophils % Lymphocytes % Monocytes % Eosinophils % Basophils % Nucleated RBC % PT with INR INR PTT (Actin FS) Sodium 141 Potassium 4.4 Chloride 108 H Carbon Dioxide 28 Anion Gap 5 L BUN 19.2 H Creatinine 0.8 Est GFR (CKD-EPI)AfAm 110.19 Est GFR (CKD-EPI)NonAf 95.07 Random Glucose 108 H Calcium 9.2 Total Bilirubin 0.4 AST 17 ALT 21 Alkaline Phosphatase 126 H Total Protein 8.0 Albumin 4.0 Urine Color Yellow Urine Appearance Clear Urine pH 5.5 D Ur Specific [place] 1.018 Urine Protein Negative Urine Glucose (UA) Negative Urine Ketones Negative Urine Blood Negative Urine Nitrite Negative Urine Bilirubin Negative Urine Urobilinogen 0.2 Ur Leukocyte Esterase Negative Urine WBC (Auto) 11 Urine RBC (Auto) 4 Urine Casts (Auto) 1 U Epithel Cells (Auto) 8 Urine Bacteria (Auto) 11 SARS-CoV-2 (PCR) Blood Type Cancelled Antibody Screen Cancelled Crossmatch See Detail 06/26/20 06/26/20 14:00 22:10 WBC 16.3 H RBC 3.45 L Hgb 10.7 L Hct 32.7 L D MCV 94.8 MCH 31.0 MCHC 32.7 RDW 14.3 Plt Count 234 D MPV 8.4 Absolute Neuts (auto) 13.6 H Neutrophils % 83.4 H Lymphocytes % 6.8 L Monocytes % 9.7 Eosinophils % 0.0 Basophils % 0.1 Nucleated RBC % 0 PT with INR INR PTT (Actin FS) Sodium Potassium Chloride Carbon Dioxide Anion Gap BUN Creatinine Est GFR (CKD-EPI)AfAm Est GFR (CKD-EPI)NonAf Random Glucose Calcium Total Bilirubin AST ALT Alkaline Phosphatase Total Protein Albumin Urine Color Urine Appearance Urine pH Ur Specific [place] Urine Protein Urine Glucose (UA) Urine Ketones Urine Blood Urine Nitrite Urine Bilirubin Urine Urobilinogen Ur Leukocyte Esterase Urine WBC (Auto) Urine RBC (Auto) Urine Casts (Auto) U Epithel Cells (Auto) Urine Bacteria (Auto) SARS-CoV-2 (PCR) Blood Type A POSITIVE Antibody Screen Negative Crossmatch Home Medications Medication Instructions Recorded NK [No Known Home Medication] 06/20/20 Current Medications Generic Name Dose Route Start Last Admin Trade Name Freq PRN Reason Stop Dose Admin Benzocaine/Menthol 1 each 06/26/20 21:35 Cepacol Lozenge - MM PRN PRN SORE THROAT Diphenhydramine HCl 25 mg 06/26/20 21:29 Benadryl - PO Q6H PRN FOR ITCHING Docusate Sodium 100 mg 06/26/20 22:00 Colace - PO TID KERMIT Famotidine 20 mg 06/26/20 21:35 Pepcid - PO DAILY PRN INDIGESTION Fentanyl 50 mcg 06/26/20 21:43 Sublimaze Injection - IVPUSH [id number] PRN PAIN-PACU ORDER X 4 DOSES ONLY Ferrous Sulfate 325 mg 06/27/20 10:00 Feosol - PO DAILY KERMIT Folic Acid 1 mg 06/27/20 10:00 Folic Acid - PO DAILY KERMIT Heparin Sodium (Porcine) 5,000 unit 06/27/20 08:00 Heparin - SQ TID KERMIT Hydromorphone HCl 10 mg 06/26/20 21:45 06/26/20 21:50 Hydromorphone 10 Mg/50 Ml-Ns HAMMER REPAIRER 07/03/20 21:43 10 mg HAMMER REPAIRER KERMIT Administration Protocol Sodium Chloride 1,000 mls @ 83 mls/hr 06/26/20 09:15 06/26/20 09:30 Normal Saline - IV 83 mls/hr ASDIR KERMIT Administration Lactated Ringer's 1,000 ml in 1,000 mls @ 125 mls/hr 06/26/20 21:30 Lactated Ringers Solution IV ASDIR KERMIT Cefazolin Sodium 1 gm in 50 mls @ 100 mls/hr 06/27/20 03:30 Ancef 1 Gm Premixed Ivpb - IVPB Q8H KERMIT Ondansetron HCl 4 mg 06/26/20 21:29 Zofran Injection IVPUSH Q6H PRN NAUSEA Polyethylene Glycol 17 gm 06/27/20 06:00 Miralax (For Daily Use) - PO DAILY PRN CONSTIPATION ASSESSMENT AND PLAN: 65 M Acute spinal cord compression Diffuse L-spine radiculopathy Weakness Saddle anesthesia h/o Rickets Plan: Cont. Decadron, plan for surgery for urgent decompressive L spine surgery Obtain bladder scan, if obstructive place orosco catheter Perioperative abx w/ Cefazolin Correct electrolytes NSG team following Obtain EKG/CXR DVT ppx: Heparin SC
--- NOTE | 2020-06-26 23:00 | CONSULT ---
Consultation: REQUESTING PROVIDER: Dr. Bear CONSULT REQUEST: We have been asked to medically evaluate this patient for ICU admission. Patient came from PACU to ICU. HISTORY OF PRESENT ILLNESS: 65 male with PMHx of Rickets presents to ED for concern of increasing severity bilateral LE dysfunction, with emergent imaging (06/20/20) indicating cord compression of the T-spine. Was initially seen at [facility] on 05/19/20 for leg tightness, and episodes of falling. Was told it was related to knee OA and told to f/u with a PCP and a neurologist. Has had leg weakness, feels his gait is wobbly and has shooting pain down his legs. He was also experiencing numbness in lower back. Denies change in Both UE strength. Denies changes in BM, reports urinary retention/hesitation. Has decreased sensation in the perineum while wiping. Thinks his erection will go and come away during the act of coitus. Has been taking dexamethasone by outpatient neurology(Beatrice?), which helped with the buttocks tightness. Has been quarntining at home. 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 In ICU s/p T3-T10 decompression/fusion, incidental durotomy. Patient is moving both LE in bed without pain. Patients reports decreased shooting sensation down his legs since the surgery. He said he feels much better already. In no acute distress. Denies any other medical hx. Endorses smoking marijuana daily REVIEW OF SYSTEMS: CONSTITUTIONAL: Absent: fever, chills, diaphoresis, generalized weakness, malaise, loss of appetite, weight change HEENT: Absent: rhinorrhea, nasal congestion, throat pain, throat swelling, difficulty swallowing, mouth swelling, ear pain, eye pain, visual changes CARDIOVASCULAR: Absent: chest pain, syncope, palpitations, irregular heart rate, lightheadedness, peripheral edema RESPIRATORY: Absent: cough, shortness of breath, dyspnea with exertion, orthopnea, wheezing, stridor, hemoptysis GASTROINTESTINAL: Absent: abdominal pain, abdominal distension, nausea, vomiting, diarrhea, constipation, melena, hematochezia GENITOURINARY: Absent: dysuria, frequency, urgency, hesitancy, hematuria, flank pain, genital pain MUSCULOSKELETAL: has pain in left hip area Absent: myalgia, arthralgia, joint swelling, back pain, neck pain SKIN: Absent: rash, itching, pallor HEMATOLOGIC/IMMUNOLOGIC: Absent: easy bleeding, easy bruising, lymphadenopathy, frequent infections ENDOCRINE: Absent: unexplained weight gain, unexplained weight loss, heat intolerance, cold intolerance NEUROLOGIC: Absent: headache, focal weakness or paresthesias, dizziness, unsteady gait, seizure, mental status changes, bladder or bowel incontinence PSYCHIATRIC: Absent: anxiety, depression, suicidal or homicidal ideation, hallucinations. PHYSICAL EXAMINATION Vital Signs - 24 hr 06/26/20 06/26/20 06/26/20 07:54 11:41 13:21 Temperature 98.5 F Pulse Rate 88 Pulse Rate [ 82 95 H Right Radial] Respiratory 18 18 18 Rate Blood Pressure 158/84 Blood Pressure 183/95 H 151/80 [Left Arm] O2 Sat by Pulse 100 100 100 Oximetry (%) 06/26/20 06/26/20 06/26/20 21:37 21:50 22:05 Temperature 98.3 F Pulse Rate 95 H 92 H 96 H Pulse Rate [ Right Radial] Respiratory 18 16 16 Rate Blood Pressure 150/84 158/77 162/72 Blood Pressure [Left Arm] O2 Sat by Pulse 100 100 100 Oximetry (%) 06/26/20 22:20 Temperature Pulse Rate 96 H Pulse Rate [ Right Radial] Respiratory 18 Rate Blood Pressure 160/80 Blood Pressure [Left Arm] O2 Sat by Pulse 100 Oximetry (%) GENERAL: Awake, alert, and fully oriented, in no acute distress. HEAD: Normal with no signs of trauma. EYES: PERRL, EOM intact ENT: Moist mucous membranes. NECK: supple LUNGS: CTA BL HEART: RRR, s1, s2 ABDOMEN: Soft, nontender, not distended MUSCULOSKELETAL: Normal range of motion at all joints. UPPER EXTREMITIES: 2+ pulses, warm, well-perfused. LOWER EXTREMITIES: 2+ pulses, warm, well-perfused. No peripheral edema. SCDS applied. Sensation intact BL. NEUROLOGICAL: Cranial nerves II-XII intact. Normal speech PSYCHIATRIC: Appropriate mood and affect. SKIN: Warm, dry, no rashes or lesions noted Laboratory Results - last 24 hr 06/26/20 06/26/20 06/26/20 08:39 08:49 08:49 WBC 15.1 H RBC 4.34 Hgb 13.4 Hct 41.0 MCV 94.4 MCH 30.9 MCHC 32.8 RDW 13.9 Plt Count 344 MPV 9.0 Absolute Neuts (auto) 12.9 H Neutrophils % 85.3 H D Lymphocytes % 7.6 L D Monocytes % 7.0 Eosinophils % 0.0 D Basophils % 0.1 Nucleated RBC % 0 PT with INR 10.40 INR 0.88 PTT (Actin FS) 29.2 Sodium Potassium Chloride Carbon Dioxide Anion Gap BUN Creatinine Est GFR (CKD-EPI)AfAm Est GFR (CKD-EPI)NonAf Random Glucose Calcium Total Bilirubin AST ALT Alkaline Phosphatase Total Protein Albumin Urine Color Urine Appearance Urine pH Ur Specific [place] Urine Protein Urine Glucose (UA) Urine Ketones Urine Blood Urine Nitrite Urine Bilirubin Urine Urobilinogen Ur Leukocyte Esterase Urine WBC (Auto) Urine RBC (Auto) Urine Casts (Auto) U Epithel Cells (Auto) Urine Bacteria (Auto) SARS-CoV-2 (PCR) Negative Blood Type Antibody Screen Crossmatch 06/26/20 06/26/20 06/26/20 08:49 08:49 13:27 WBC RBC Hgb Hct MCV MCH MCHC RDW Plt Count MPV Absolute Neuts (auto) Neutrophils % Lymphocytes % Monocytes % Eosinophils % Basophils % Nucleated RBC % PT with INR INR PTT (Actin FS) Sodium 141 Potassium 4.4 Chloride 108 H Carbon Dioxide 28 Anion Gap 5 L BUN 19.2 H Creatinine 0.8 Est GFR (CKD-EPI)AfAm 110.19 Est GFR (CKD-EPI)NonAf 95.07 Random Glucose 108 H Calcium 9.2 Total Bilirubin 0.4 AST 17 ALT 21 Alkaline Phosphatase 126 H Total Protein 8.0 Albumin 4.0 Urine Color Yellow Urine Appearance Clear Urine pH 5.5 D Ur Specific [place] 1.018 Urine Protein Negative Urine Glucose (UA) Negative Urine Ketones Negative Urine Blood Negative Urine Nitrite Negative Urine Bilirubin Negative Urine Urobilinogen 0.2 Ur Leukocyte Esterase Negative Urine WBC (Auto) 11 Urine RBC (Auto) 4 Urine Casts (Auto) 1 U Epithel Cells (Auto) 8 Urine Bacteria (Auto) 11 SARS-CoV-2 (PCR) Blood Type Cancelled Antibody Screen Cancelled Crossmatch See Detail 06/26/20 06/26/20 14:00 22:10 WBC 16.3 H RBC 3.45 L Hgb 10.7 L Hct 32.7 L D MCV 94.8 MCH 31.0 MCHC 32.7 RDW 14.3 Plt Count 234 D MPV 8.4 Absolute Neuts (auto) 13.6 H Neutrophils % 83.4 H Lymphocytes % 6.8 L Monocytes % 9.7 Eosinophils % 0.0 Basophils % 0.1 Nucleated RBC % 0 PT with INR INR PTT (Actin FS) Sodium Potassium Chloride Carbon Dioxide Anion Gap BUN Creatinine Est GFR (CKD-EPI)AfAm Est GFR (CKD-EPI)NonAf Random Glucose Calcium Total Bilirubin AST ALT Alkaline Phosphatase Total Protein Albumin Urine Color Urine Appearance Urine pH Ur Specific [place] Urine Protein Urine Glucose (UA) Urine Ketones Urine Blood Urine Nitrite Urine Bilirubin Urine Urobilinogen Ur Leukocyte Esterase Urine WBC (Auto) Urine RBC (Auto) Urine Casts (Auto) U Epithel Cells (Auto) Urine Bacteria (Auto) SARS-CoV-2 (PCR) Blood Type A POSITIVE Antibody Screen Negative Crossmatch Active Medications Generic Name Dose Route Start Last Admin Trade Name Freq PRN Reason Stop Dose Admin Benzocaine/Menthol 1 each 06/26/20 21:35 Cepacol Lozenge - MM PRN PRN SORE THROAT Diphenhydramine HCl 25 mg 06/26/20 21:29 Benadryl - PO Q6H PRN FOR ITCHING Docusate Sodium 100 mg 06/26/20 22:00 Colace - PO TID KERMIT Famotidine 20 mg 06/26/20 21:35 Pepcid - PO DAILY PRN INDIGESTION Fentanyl 50 mcg 06/26/20 21:43 Sublimaze Injection - IVPUSH [id number] PRN PAIN-PACU ORDER X 4 DOSES ONLY Ferrous Sulfate 325 mg 06/27/20 10:00 Feosol - PO DAILY KERMIT Folic Acid 1 mg 06/27/20 10:00 Folic Acid - PO DAILY KERMIT Heparin Sodium (Porcine) 5,000 unit 06/27/20 08:00 Heparin - SQ TID KERIMT Hydromorphone HCl 10 mg 06/26/20 21:45 06/26/20 21:50 Hydromorphone 10 Mg/50 Ml-Ns CALCINER OPERATOR HELPER 07/03/20 21:43 10 mg CALCINER OPERATOR HELPER KERMIT Administration Protocol Sodium Chloride 1,000 mls @ 83 mls/hr 06/26/20 09:15 06/26/20 09:30 Normal Saline - IV 83 mls/hr ASDIR KERMIT Administration Lactated Ringer's 1,000 ml in 1,000 mls @ 125 mls/hr 06/26/20 21:30 Lactated Ringers Solution IV ASDIR KERMIT Cefazolin Sodium 1 gm in 50 mls @ 100 mls/hr 06/27/20 03:30 Ancef 1 Gm Premixed Ivpb - IVPB Q8H KERMIT Ondansetron HCl 4 mg 06/26/20 21:29 Zofran Injection IVPUSH Q6H PRN NAUSEA Polyethylene Glycol 17 gm 06/27/20 06:00 Miralax (For Daily Use) - PO DAILY PRN CONSTIPATION ASSESSMENT/PLAN: 65 yo Male with PMHx of Rickets, presents to the ED for concern of increasing severity of bilateral LE dysfunction, with emergent imaging (06/20/20) indicating cord compression of the T-spine. Dr. Bear onboard for emergent operative treatment. Patient admitted to ICU post op for further management. Neuro - T-spine cord compression - dexamethasone as per neurosurgery - Dr. Bear performed emergent surgery:T3-T10 decompression/fusion, incidental durotomy - patient moving both LE with sensation intact. 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 - surgical drain in place - CT spine s/p surgery results pending Pulm - saturating 100% on RA - incentive spirometry Cardio - cardiac monitoring ID - IVPB cefazolin post op - Covid rapid PCR negative - Covid antibody test negative Renal - orosco in place - monitor I&Os s/p surgery - monitor for improved urinary hesitancy/retention GI - constipation, on colace and miralax DVT ppx - sq heparin TID - SCDs GI ppx famotidine po daily FEN - LR 125 cc/hr - NPO until surgery clears for food - monitor and replenish electrolytes PRN Dispo - ICU Visit type - Emergency Visit Emergency Visit: Yes ED Registration Date: 06/26/20 Care time: The patient presented to the Emergency Department on the above date and was hospitalized for further evaluation of their emergent condition. - New Patient This patient is new to me today: Yes Date on this admission: 06/26/20 - Critical Care Critical Care patient: Yes Total Critical Care Time (in minutes): 36 Critical Care Statement: The care of this patient involved high complexity decision making to prevent further life threatening deterioration of the patient's condition and/or to evaluate & treat vital organ system(s) failure or risk of failure. ATTENDING PHYSICIAN STATEMENT I saw and evaluated the patient. I reviewed the resident's note and discussed the case with the resident. I agree with the resident's findings and plan as documented. SUBJECTIVE: OBJECTIVE: ASSESSMENT AND PLAN:
[2020-06-26 23:01] LABS: BLOOD UREA NITROGEN 20.8 mg/dL (7-18); CALCIUM 7.4 mg/dL (8.5-10.1); CREATININE 0.9 mg/dL (0.55-1.3); MAGNESIUM 2.3 mg/dL (1.8-2.4); PHOSPHOROUS 2.2 mg/dL (2.5-4.9); POTASSIUM 4.7 mmol/L (3.5-5.1)
[2020-06-27] MEDS: SODIUM CHLORIDE 1,000 ML IV SCH (00:14)
[2020-06-27] MEDS: HYDROmorphone *PCA* 10MG/50ML DISP.SYRIN PCA SCH (00:14)
[2020-06-27] MEDS ORDERED: CEFAZOLIN 1 GM/D5W 1 GM/50 ML BAG IVPB ONE (03:00)
[2020-06-27] MEDS ORDERED: CEFAZOLIN 1 GM/D5W 1 GM/50 ML BAG IVPB SCH ×2 (03:30)
[2020-06-27] MEDS ORDERED: POLYETHYLENE GLYCOL 3350 119 GM BTL PO PRN ×2 (06:00)
[2020-06-27] MEDS ORDERED: DOCUSATE SODIUM 100 MG CAPSULE (FP) PO SCH (06:00)
[2020-06-27] MEDS: DOCUSATE SODIUM 100 MG CAPSULE (FP) PO SCH ×3 (06:02→21:22)
[2020-06-27 06:24] LABS: HEMATOCRIT 31.4 % (35.4-49); HEMOGLOBIN 10.3 GM/dL (11.7-16.9); MCH 31.2 pg (25.7-33.7); MCHC 32.9 g/dl (32.0-35.9); MEAN CELL VOLUME 94.8 fl (80-96); PLATELET COUNT 246 K/MM3 (134-434); RBC 3.31 M/mm3 (4.00-5.60); WHITE BLOOD COUNT 11.7 K/mm3 (4.0-10.0)
[2020-06-27 06:36] LABS: BLOOD UREA NITROGEN 16.1 mg/dL (7-18); CALCIUM 7.4 mg/dL (8.5-10.1); CREATININE 0.8 mg/dL (0.55-1.3); MAGNESIUM 1.5 mg/dL (1.8-2.4); PHOSPHOROUS 1.6 mg/dL (2.5-4.9); POTASSIUM 4.2 mmol/L (3.5-5.1)
--- NOTE | 2020-06-27 07:44 | PN ---
Progress Note (short form) - Note Progress Note: NEUROSURGERY POD #1 No acute event since surgery per RN notes. Patient is asleep at this time and don't want to disturb him seeing as they got out of OR late last night (allow him to recover a bit more). Last Vital Signs Temp Pulse Resp BP Pulse Ox 98.2 F 97 H 13 171/72 H 99 06/27/20 04:00 06/27/20 06:00 06/27/20 06:00 06/27/20 06:00 06/27/20 06:00 CBC, BMP 06/27/20 05:50 06/27/20 05:50 INR, PTT INR 0.88 (0.83-1.09) 06/26/20 08:49 GEN: sleeping. resting comfortably BACK: unable to visualize dressing at this time (will come back this afternoon). MAN: 250mL (serosang) : [place] to gravity 10mL LE: SCDs bilat A/P: 65M w/ pmh of Rickets presents to [facility] for concern of increasing severity of BLE dysfunction, with emergent imaging(06/20/20) indicating cord compression of the T-spine. Now, POD #1 s/p T3-T10 decompression/fusion, repair incidental durotomy w/ muscle patch - Begin clear liquid diet - DVT PPx - TLSO Brace ordered - OOB to chair with assist - PT eval; may begin if TLSO brace hasn't arrived from supply - EFFICIENCY ANALYST for pain management - Monitor/record MAN & orosco output q shift - IV ABX to cont > 24H while drains remain in - Incentive spirometer - f/u post-procedure thoracic CT scan - Cont ICU management Above plan discussed with Dr. Bear and agrees. Problem List - Problems (1) Cord compression Code(s): G95.20 - UNSPECIFIED CORD COMPRESSION (2) Weakness Code(s): R53.1 - WEAKNESS
[2020-06-27] MEDS ORDERED: HEPARIN NA (PORCINE) 5,000 UNITS/ML 1ML VIAL SQ SCH (08:00)
[2020-06-27] MEDS ORDERED: MAGNESIUM OXIDE 400 MG TABLET (FP) PO ONE (08:45)
[2020-06-27] MEDS ORDERED: NAPH,MB-DB/K PH,MBDB POWDER PACKET PO ONE (08:45)
[2020-06-27] MEDS: FERROUS SO4 325 MG TABLET (FP) PO SCH (09:30)
[2020-06-27] MEDS: HEPARIN NA (PORCINE) 5,000 UNITS/ML 1ML VIAL SQ SCH ×3 (09:30→21:23)
[2020-06-27] MEDS: CEFAZOLIN 1 GM/D5W 1 GM/50 ML BAG IVPB SCH ×2 (09:31→17:14)
[2020-06-27] MEDS: FOLIC ACID 1 MG TABLET (FP) PO SCH (09:31)
[2020-06-27] MEDS ORDERED: FOLIC ACID 1 MG TABLET (FP) PO SCH (10:00)
[2020-06-27] MEDS ORDERED: FERROUS SO4 325 MG TABLET (FP) PO SCH (10:00)
--- NOTE | 2020-06-27 11:06 | PN ---
Progress Note (short form) - Note Progress Note: Anesthesia postop note 65 y/o M s/p GA/PSYCH COORDINATOR thoracic decompression multiple levels. POD#1, vss, aaox3, pain fairly well controlled, ICU monitoring. Continue PSYCH COORDINATOR today. No anesthesia complications.
--- NOTE | 2020-06-27 11:11 | PN ---
Teaching Attending Note Name of Resident: Trupti Daly ATTENDING PHYSICIAN STATEMENT I saw and evaluated the patient. I reviewed the resident's note and discussed the case with the resident. I agree with the resident's findings and plan as documented. SUBJECTIVE: Patient seen and examined in the ICU. POD #1: T3-T10 decompression/fusion, incidental durotomy. OOB to chair. No CP or SOB. Reports 10/10 pain despite being on TRIAL EXAMINER. Intake & Output 06/24/20 06/25/20 06/26/20 06/27/20 23:59 23:59 23:59 23:59 Intake Total 3250 910 Output Total 1510 260 Balance 1740 650 Weight 138 lb Last Vital Signs Temp Pulse Resp BP Pulse Ox 99.0 F 93 H 18 138/69 99 06/27/20 10:00 06/27/20 12:00 06/27/20 12:00 06/27/20 12:00 06/27/20 12:00 Active Medications Benzocaine/Menthol (Cepacol Lozenge -) 1 each MM PRN PRN PRN Reason: SORE THROAT Chlorhexidine Gluconate (Hibiclens For Decolonization -) 1 applic TP HS [facility] Diphenhydramine HCl (Benadryl -) 25 mg PO Q6H PRN PRN Reason: FOR ITCHING Docusate Sodium (Colace -) 100 mg PO TID [facility] Last Admin: 06/27/20 13:09 Dose: 100 mg Documented by: Famotidine (Pepcid -) 20 mg PO DAILY PRN PRN Reason: INDIGESTION Ferrous Sulfate (Feosol -) 325 mg PO 0800 [facility] Last Admin: 06/27/20 09:30 Dose: 325 mg Documented by: Folic Acid (Folic Acid -) 1 mg PO DAILY [facility] Last Admin: 06/27/20 09:31 Dose: 1 mg Documented by: Heparin Sodium (Porcine) (Heparin -) 5,000 unit SQ TID [facility] Last Admin: 06/27/20 13:09 Dose: 5,000 unit Documented by: Hydromorphone HCl (Hydromorphone 10 Mg/50 Ml-Ns) 10 mg TRIAL EXAMINER TRIAL EXAMINER [facility]; Protocol Stop: 07/03/20 21:43 Last Admin: 06/27/20 00:14 Dose: Not Given Documented by: Sodium Chloride (Normal Saline -) 1,000 mls @ 83 mls/hr IV ASDIR KERMIT Last Admin: 06/27/20 00:14 Dose: Not Given Documented by: Cefazolin Sodium (Ancef 1 Gm Premixed Ivpb -) 1 gm in 50 mls @ 100 mls/hr IVPB Q8H-IV KERMIT Last Admin: 06/27/20 09:31 Dose: 100 mls/hr Documented by: Mupirocin (Bactroban Ointment (For Decolonization) -) 1 applic NS BID [facility] Stop: 07/02/20 09:59 Ondansetron HCl (Zofran Injection) 4 mg IVPUSH Q6H PRN PRN Reason: NAUSEA Polyethylene Glycol (Miralax (For Daily Use) -) 17 gm PO DAILY PRN PRN Reason: CONSTIPATION GENERAL: Awake, alert, and fully oriented, in no acute distress. HEAD: Normal with no signs of trauma. EYES: PERRL, EOM intact ENT: Moist mucous membranes. NECK: supple LUNGS: CTA BL HEART: RRR, s1, s2 ABDOMEN: Soft, nontender, not distended MUSCULOSKELETAL: Normal range of motion at all joints. UPPER EXTREMITIES: 2+ pulses, warm, well-perfused. LOWER EXTREMITIES: 2+ pulses, warm, well-perfused. No peripheral edema. SCDS applied. Sensation intact BL. NEUROLOGICAL: Non-focal PSYCHIATRIC: Appropriate mood and affect. SKIN: Warm, dry, no rashes or lesions noted Laboratory Results - last 24 hr 06/26/20 06/26/20 06/26/20 13:27 14:00 22:10 WBC 16.3 H RBC 3.45 L Hgb 10.7 L Hct 32.7 L D MCV 94.8 MCH 31.0 MCHC 32.7 RDW 14.3 Plt Count 234 D MPV 8.4 Absolute Neuts (auto) 13.6 H Neutrophils % 83.4 H Lymphocytes % 6.8 L Monocytes % 9.7 Eosinophils % 0.0 Basophils % 0.1 Nucleated RBC % 0 Sodium Potassium Chloride Carbon Dioxide Anion Gap BUN Creatinine Est GFR (CKD-EPI)AfAm Est GFR (CKD-EPI)NonAf Random Glucose Calcium Phosphorus Magnesium Urine Color Yellow Urine Appearance Clear Urine pH 5.5 D Ur Specific [place] 1.018 Urine Protein Negative Urine Glucose (UA) Negative Urine Ketones Negative Urine Blood Negative Urine Nitrite Negative Urine Bilirubin Negative Urine Urobilinogen 0.2 Ur Leukocyte Esterase Negative Urine WBC (Auto) 11 Urine RBC (Auto) 4 Urine Casts (Auto) 1 U Epithel Cells (Auto) 8 Urine Bacteria (Auto) 11 Blood Type A POSITIVE Antibody Screen Negative 06/26/20 06/27/20 06/27/20 22:10 05:50 05:50 WBC 11.7 H RBC 3.31 L Hgb 10.3 L Hct 31.4 L MCV 94.8 MCH 31.2 MCHC 32.9 RDW 14.0 Plt Count 246 MPV 9.0 Absolute Neuts (auto) Neutrophils % Lymphocytes % Monocytes % Eosinophils % Basophils % Nucleated RBC % Sodium 144 141 Potassium 4.7 4.2 Chloride 114 H 109 H Carbon Dioxide 25 26 Anion Gap 5 L 6 L BUN 20.8 H 16.1 Creatinine 0.9 0.8 Est GFR (CKD-EPI)AfAm 104.98 110.19 Est GFR (CKD-EPI)NonAf 90.58 95.07 Random Glucose 137 H 114 H Calcium 7.4 L 7.4 L Phosphorus 2.2 L 1.6 L Magnesium 2.3 1.5 L Urine Color Urine Appearance Urine pH Ur Specific [place] Urine Protein Urine Glucose (UA) Urine Ketones Urine Blood Urine Nitrite Urine Bilirubin Urine Urobilinogen Ur Leukocyte Esterase Urine WBC (Auto) Urine RBC (Auto) Urine Casts (Auto) U Epithel Cells (Auto) Urine Bacteria (Auto) Blood Type Antibody Screen ASSESSMENT/PLAN: POD#1: T3-T10 decompression/fusion, incidental durotomy. Pain control Incentive Spirometry Mobility and activity per surgery PO as tolerated VTE prophylaxis Dexamethasone Floor when cleared by surgery Dr Tinajero
[2020-06-27] MEDS: MUPIROCIN 2% TOPICAL OINTMENT FOR DECOLONIZATION NS SCH ×2 (17:40→21:22)
--- NOTE | 2020-06-27 18:58 | PN ---
Progress Note, Physician History of Present Illness: 65 yo male with PMH of Rickets POD#1 from Thoracic Decompression/Fusion with incidental Duratomy surgery by Dr. Bear Pt complaining of pain. 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 Pt able to move all e xtremities. No acute events overnight. - Current Medication List Current Medications: Active Medications Benzocaine/Menthol (Cepacol Lozenge -) 1 each MM PRN PRN PRN Reason: SORE THROAT Chlorhexidine Gluconate (Hibiclens For Decolonization -) 1 applic TP HS [facility] Diphenhydramine HCl (Benadryl -) 25 mg PO Q6H PRN PRN Reason: FOR ITCHING Docusate Sodium (Colace -) 100 mg PO TID [facility] Last Admin: 06/27/20 13:09 Dose: 100 mg Documented by: Famotidine (Pepcid -) 20 mg PO DAILY PRN PRN Reason: INDIGESTION Ferrous Sulfate (Feosol -) 325 mg PO 0800 [facility] Last Admin: 06/27/20 09:30 Dose: 325 mg Documented by: Folic Acid (Folic Acid -) 1 mg PO DAILY [facility] Last Admin: 06/27/20 09:31 Dose: 1 mg Documented by: Heparin Sodium (Porcine) (Heparin -) 5,000 unit SQ TID [facility] Last Admin: 06/27/20 13:09 Dose: 5,000 unit Documented by: Hydromorphone HCl (Hydromorphone 10 Mg/50 Ml-Ns) 10 mg SENIOR ORACLE SOA DEVELOPER SENIOR ORACLE SOA DEVELOPER [facility]; Protocol Stop: 07/03/20 21:43 Last Admin: 06/27/20 00:14 Dose: Not Given Documented by: Sodium Chloride (Normal Saline -) 1,000 mls @ 83 mls/hr IV ASDIR [facility] Last Admin: 06/27/20 00:14 Dose: Not Given Documented by: Cefazolin Sodium (Ancef 1 Gm Premixed Ivpb -) 1 gm in 50 mls @ 100 mls/hr IVPB Q8H-IV [facility] Last Admin: 06/27/20 17:14 Dose: 100 mls/hr Documented by: Mupirocin (Bactroban Ointment (For Decolonization) -) 1 applic NS BID [facility] Stop: 07/02/20 09:59 Last Admin: 06/27/20 17:40 Dose: 1 inch Documented by: Ondansetron HCl (Zofran Injection) 4 mg IVPUSH Q6H PRN PRN Reason: NAUSEA Polyethylene Glycol (Miralax (For Daily Use) -) 17 gm PO DAILY PRN PRN Reason: CONSTIPATION - Objective Vital Signs: Vital Signs Temperature 97 F L 06/27/20 17:41 Pulse Rate 100 H 06/27/20 17:41 Respiratory Rate 16 06/27/20 17:41 Blood Pressure 130/64 06/27/20 17:41 O2 Sat by Pulse Oximetry (%) 100 06/27/20 14:00 Constitutional: Yes: Well Nourished, No Distress, Calm Eyes: Yes: Conjunctiva Clear, EOM Intact HENT: Yes: Atraumatic, Normocephalic Cardiovascular: Yes: Regular Rate and Rhythm, S1, S2 Respiratory: Yes: Regular, CTA Bilaterally Gastrointestinal: Yes: Normal Bowel Sounds, Soft Genitourinary: Yes: Anuria, CVA Tenderness - Left, CVA Tenderness - Right Musculoskeletal: Yes: Other (Able to move all 4 extremities) Extremities: No: Cold, Cool, Cyanosis Neurological: Yes: Alert, Oriented Labs: CBC, BMP 06/27/20 05:50 06/27/20 05:50 INR, PTT INR 0.88 (0.83-1.09) 06/26/20 08:49 Impression/Plan Impression/Plan: #Neuro - T-spine cord compression - Dr. Bear performed emergent surgery:T3-T10 decompression/fusion, incident al durotomy - patient moving both LE with sensation intact. Will monitor urinary and BM control - Dexamethasone - Hydromorphone (SENIOR ORACLE SOA DEVELOPER) - surgical drain in place - CT spine s/p surgery results pending #ID - Cefazolin - Mupirocin Ointment #GI - Colace + Miralax for constipation - Pepsid + Famotidine for abd discomfort - Zofran for nausea #FEN - Normal Saline (83mL/hour) - NPO until surgery clears for food - monitor and replenish electrolytes PRN #Pulm - saturating 100% on RA - incentive spirometry #Renal - orosco in place - monitor I&Os s/p surgery - monitor for improved urinary hesitancy/retention #DVT ppx: Heparin TID + SCD Dispo: Floors after neurosurgery clears Visit type - Emergency Visit Emergency Visit: Yes ED Registration Date: 06/26/20 Care time: The patient presented to the Emergency Department on the above date and was hospitalized for further evaluation of their emergent condition. - New Patient This patient is new to me today: Yes Date on this admission: 06/28/20 - Critical Care Critical Care patient: Yes Total Critical Care Time (in minutes): 30 Critical Care Statement: The care of this patient involved high complexity decision making to prevent further life threatening deterioration of the patient's condition and/or to evaluate & treat vital organ system(s) failure or risk of failure. ATTENDING PHYSICIAN STATEMENT I saw and evaluated the patient. I reviewed the resident's note and discussed the case with the resident. I agree with the resident's findings and plan as documented. SUBJECTIVE: OBJECTIVE: ASSESSMENT AND PLAN:
[2020-06-27] MEDS ORDERED: CHLORHEXIDINE GLUCONATE 4% CLEANSER FOR DECOLONIZATION TP SCH (22:00)
[2020-06-28] MEDS ORDERED: PCA PUMP NR ONE ×4 (01:16→10:29)
[2020-06-28] MEDS: HYDROmorphone *PCA* 10MG/50ML DISP.SYRIN PCA SCH (01:19)
[2020-06-28] MEDS: SODIUM CHLORIDE 1,000 ML IV SCH ×2 (02:06→14:43)
[2020-06-28] MEDS: CEFAZOLIN 1 GM/D5W 1 GM/50 ML BAG IVPB SCH ×3 (02:19→18:09)
[2020-06-28] MEDS: DOCUSATE SODIUM 100 MG CAPSULE (FP) PO SCH ×3 (05:49→21:01)
[2020-06-28] MEDS: HEPARIN NA (PORCINE) 5,000 UNITS/ML 1ML VIAL SQ SCH ×3 (05:49→21:01)
[2020-06-28 06:40] LABS: HEMATOCRIT 26.9 % (35.4-49); HEMOGLOBIN 9.2 GM/dL (11.7-16.9); MCH 32.3 pg (25.7-33.7); MCHC 34.2 g/dl (32.0-35.9); MEAN CELL VOLUME 94.5 fl (80-96); MEAN PLT VOLUME 8.6 fl (7.5-11.1); PLATELET COUNT 183 K/MM3 (134-434); RBC 2.85 M/mm3 (4.00-5.60)
[2020-06-28 07:02] LABS: CREATININE 0.6 mg/dL (0.55-1.3); MAGNESIUM 1.6 mg/dL (1.8-2.4); PHOSPHOROUS 1.4 mg/dL (2.5-4.9); POTASSIUM 3.8 mmol/L (3.5-5.1)
[2020-06-28 07:03] LABS: CALCIUM 6.9 mg/dL (8.5-10.1)
--- NOTE | 2020-06-28 08:06 | PN ---
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
[2020-06-28] MEDS ORDERED: oxyCODONE HCL 5 MG TABLET PO PRN (08:33)
--- NOTE | 2020-06-28 08:49 | PN ---
Progress Note (short form) - Note Progress Note: NEUROSURGERY POD #2 No acute event since surgery per RN notes. Alert. C/o incisional tenderness. Adequate pain control. Last Vital Signs Temp Pulse Resp BP Pulse Ox 98.6 F 96 H 16 145/64 98 06/28/20 04:00 06/28/20 08:00 06/28/20 08:00 06/28/20 08:00 06/28/20 06:49 CBC, BMP 06/28/20 06:00 06/28/20 06:00 24Hr Output 06/27/20 06/27/20 06/27/20 06/27/20 06/28/20 06/28/20 06:00 06:48 14:13 15:00 06:00 07:44 MAN 140 110 160 180 120 150 [place] 10 650 800 PE GEN: sleeping. resting comfortably BACK: unable to visualize dressing at this time (will come back this afternoon). MAN: 250mL (serosang) : [place] to gravity 10mL LE: SCDs bilat A/P: 65M w/ pmh of Rickets presents to [facility] for concern of increasing severity of BLE dysfunction, with emergent imaging(06/20/20) indicating cord compression of the T-spine. Now, POD #2 s/p T3-T10 decompression/fusion, repair incidental durotomy w/ muscle patch - Regular diet - DVT PPx - TLSO Brace ordered - OOB to chair with assist - PT - Pain management - Monitor/record MAN - DC orosco and check post-void residual - IV ABX to cont while MAN remain in - Incentive spirometer - Cont ICU management Above plan discussed with Dr. Bear and agrees. Problem List - Problems (1) Cord compression Code(s): G95.20 - UNSPECIFIED CORD COMPRESSION (2) Weakness Code(s): R53.1 - WEAKNESS
[2020-06-28] MEDS ORDERED: MAGNESIUM 1GM/D5W 100ML - 100 ML IVPB IVPB ONE (09:00)
[2020-06-28] MEDS: FOLIC ACID 1 MG TABLET (FP) PO SCH (09:03)
[2020-06-28] MEDS: FERROUS SO4 325 MG TABLET (FP) PO SCH (09:05)
[2020-06-28] MEDS ORDERED: SODIUM PHOSPHATE - 40 MM in SODIUM CHLORIDE 500 ML IVPB ONE (10:00)
[2020-06-28] MEDS ORDERED: PT OWN MED DRAWER 7, Y5N ONE (10:59)
[2020-06-28] MEDS: MUPIROCIN 2% TOPICAL OINTMENT FOR DECOLONIZATION NS SCH (11:03)
[2020-06-28] MEDS ORDERED: CALCIUM GLUCONATE 10% - 1,000 MG/10 ML VIAL IVPB ONE (12:02)
--- NOTE | 2020-06-28 12:02 | PN ---
Teaching Attending Note Name of Resident: Cole Bustamante ATTENDING PHYSICIAN STATEMENT I saw and evaluated the patient. I reviewed the resident's note and discussed the case with the resident. I agree with the resident's findings and plan as documented. SUBJECTIVE: Pt seen and examined in the ICU. Did not sleep well. Still some tingling in both feet. +flatus OBJECTIVE: Vital Signs Period Temp Pulse Resp BP Sys/William Pulse Ox Last 24 Hr 97 F-99.4 F 62-100 13-18 103-148/59-73 98-100 Intake & Output 06/25/20 06/26/20 06/27/20 06/28/20 23:59 23:59 23:59 23:59 Intake Total 3250 2410 2465 Output Total 1510 1250 1150 Balance 1740 1160 1315 Weight 62.596 kg Gen: NAD in chair Heart: RRR Lung: decreased breath sounds at the bases Abd: soft, nontender Ext: no edema Drain with serosanguinous fluid CBC, BMP 06/28/20 06:00 06/28/20 06:00 Active Medications Benzocaine/Menthol (Cepacol Lozenge -) 1 each MM PRN PRN PRN Reason: SORE THROAT Chlorhexidine Gluconate (Hibiclens For Decolonization -) 1 applic TP HS [facility] Last Admin: 06/27/20 21:23 Dose: 1 applic Documented by: Diphenhydramine HCl (Benadryl -) 25 mg PO Q6H PRN PRN Reason: FOR ITCHING Docusate Sodium (Colace -) 100 mg PO TID [facility] Last Admin: 06/28/20 05:49 Dose: 100 mg Documented by: Famotidine (Pepcid -) 20 mg PO DAILY PRN PRN Reason: INDIGESTION Ferrous Sulfate (Feosol -) 325 mg PO 0800 [facility] Last Admin: 06/28/20 09:05 Dose: 325 mg Documented by: Folic Acid (Folic Acid -) 1 mg PO DAILY [facility] Last Admin: 06/28/20 09:03 Dose: 1 mg Documented by: Heparin Sodium (Porcine) (Heparin -) 5,000 unit SQ TID [facility] Last Admin: 06/28/20 05:49 Dose: 5,000 unit Documented by: Sodium Chloride (Normal Saline -) 1,000 mls @ 83 mls/hr IV ASDIR [facility] Last Admin: 06/28/20 02:06 Dose: Not Given Documented by: Cefazolin Sodium (Ancef 1 Gm Premixed Ivpb -) 1 gm in 50 mls @ 100 mls/hr IVPB Q8H-IV [facility] Last Admin: 06/28/20 09:03 Dose: 100 mls/hr Documented by: Sodium Phosphate 40 mm/ Sodium (Chloride) 513.3333 mls @ 62.5 mls/hr IVPB ONCE ONE Stop: 06/28/20 18:12 Last Admin: 06/28/20 11:03 Dose: 62.5 mls/hr Documented by: Mupirocin (Bactroban Ointment (For Decolonization) -) 1 applic NS BID [facility] Stop: 07/02/20 09:59 Last Admin: 06/28/20 11:03 Dose: 1 applic Documented by: Ondansetron HCl (Zofran Injection) 4 mg IVPUSH Q6H PRN PRN Reason: NAUSEA Oxycodone HCl (Roxicodone -) 5 mg PO Q3H PRN PRN Reason: PAIN LEVEL 4 - 6 Stop: 06/29/20 08:32 Last Admin: 06/28/20 09:03 Dose: 5 mg Documented by: Polyethylene Glycol (Miralax (For Daily Use) -) 17 gm PO DAILY PRN PRN Reason: CONSTIPATION ASSESSMENT AND PLAN: Thoracic Spinal Cord Compression s/p T3-T10 decompression/fusion, incidental durotomy s/p muscle patch - pain control - incentive spirometry - monitor drain output - PO as tolerated - activity/diet/disposition per surgery - DVT prophylaxis
--- NOTE | 2020-06-28 12:24 | HOSP ---
Subjective - Review of Symptoms Gastrointestinal: Yes: Nausea Neurological: Yes: Numbness (numbness/tingling of feet that improved from yesterday ) Physical Examination Vital Signs: Vital Signs Temperature 98.6 F 06/28/20 04:00 Pulse Rate 74 06/28/20 10:00 Respiratory Rate 16 06/28/20 10:00 Blood Pressure 135/59 L 06/28/20 10:00 O2 Sat by Pulse Oximetry (%) 98 06/28/20 06:49 Constitutional: Yes: No Distress HENT: Yes: Atraumatic, Normocephalic Cardiovascular: Yes: Regular Rate and Rhythm, S1, S2 Respiratory: Yes: Regular, CTA Bilaterally Gastrointestinal: Yes: Hypoactive Bowel Sounds Neurological: Yes: Alert, Loss of Sensation (feet b/l decreased sensation on inner thigh on exam), Numbness (b/l feet) ...Motor Strength: WNL, LUE, LLE, RUE, RLE Labs: CBC, BMP 06/28/20 06:00 06/28/20 06:00 Hospitalist Encounter Assessment: Patient is a 65 YO M with PMH of rickets who presents to ED for worsening bilateral LE dysfunction. Patient intially came to [facility] ED on 05/19/20 for LE tightness and episodes of falling. He was advised it was due to Was told it was related to knee OA and told to follow up with a PCP and a neurologist. He had taking dexamethasone by outpatient neurology(Michelle). On 06/20/20, he was sent in from neuro (Dr. Barron), for Tspine/Lspine MRI to r/o cord compression. However, he left AMA after waiting for a long time. Imaging (06/20/20) indicated cord compression of the T-spine. Juarez CUELLAR was asked to contact patient for MRI results. -XR Lspine(05/19/20): some vertebral wedging of lower thoracic and upper lumbar spine -MRI T-spine/L-spine(05/20/20): multilevel significant b/l ligamentum flavum h ypertrophy, resulting in severe canal stenosis at T8-T9 level, displacing the thoracic cord w/ cord compression and minimal intradural cord On arrival to ED, WBC were elevated at 15.1. He Endorsed bilateral LE weakness and "wobbly" gait with shooting pain radiating down his legs and numbness in his lower back. He also endorsed urinary retention/retention & decreased sensation in the perineum. Patient also reported being unable to maintain a continuous erection during coitus. Denies changes in UE strength and changes in BM. Patient underwent emergent T3-T10 decompression/fusion, incidental durotomy forT-spine cord compression by Dr. Bear. Patient admitted to ICU post op for further management. He received dexamethasone per neurosurgery and now S/p cefazolin. Was on hydromorphone [employer] for pain, but now is on oral oxycodone. Patient endorses that pain is controlled with medications. [id number] read of CT spine s/p surgery showed s/p decompression severe stenosis T8, which appea rs markedly improved. Called pharmacy. Was given home prescription by Dr. Vaughn Saucedo for lisinopr il/hydrochlorothiazide 20-25 mg QD, but patient endorses that he will not take the medication because he believes he was misdiagnosed. Denies having a PCP. Endorses not having seen a physician in a while because he has poor follow-up. Visit type - Emergency Visit Emergency Visit: Yes ED Registration Date: 06/26/20 Care time: The patient presented to the Emergency Department on the above date and was hospitalized for further evaluation of their emergent condition. - New Patient This patient is new to me today: No - Critical Care Critical Care patient: No
[2020-06-28 12:40] LABS: ALBUMIN 2.2 g/dl (3.4-5.0)
--- NOTE | 2020-06-28 13:04 | PN ---
Progress Note (short form) - Note Progress Note: Patient is a 65 y/o male with a history of rickets who was admitted for cord compression and underwent T3-T10 decompression. Patient is POD 2 and on po pain management. Patient cleared by surgery for downgrade out of ICU. Patient reports some nausea with pain meds but pain is tolerable, he has been able to urinate but has not yet passed gas. Patient examined and stable for the floor. Vital Signs Temperature 98 F 06/28/20 12:00 Pulse Rate 84 06/28/20 12:00 Respiratory Rate 16 06/28/20 12:00 Blood Pressure 135/59 L 06/28/20 10:00 O2 Sat by Pulse Oximetry (%) 98 06/28/20 06:49 PE General; nausea, no moderate distress Heart:RRR Lungs:CTAL MSK/Neuro: sensation b/l intact diffusely for lower extremity, muscle strength 5/5 for LE CBC, BMP 06/28/20 06:00 06/28/20 06:00
--- NOTE | 2020-06-28 13:39 | PN ---
Physical Exam: SUBJECTIVE: Patient seen and examined. No overnight events. Endorsed tingling/numbness in feet that improved.Also endorsed passing gas and nausea. Denies bowel movements and vomiting. 240 ml serosanguineous fluid from MAN drain. OBJECTIVE: Vital Signs Period Temp Pulse Resp BP Sys/William Pulse Ox Last 24 Hr 97 F-99.4 F 62-100 13-18 103-148/59-73 98-100 GENERAL: The patient is awake, alert, and fully oriented, in no acute distress. HEENT: Normal with no signs of trauma. No ptosis. MMM LUNGS: Breath sounds equal, clear to auscultation bilaterally, no wheezes, no crackles, no accessory muscle use. HEART: Regular rate and rhythm, S1, S2 without murmur, rub or gallop. ABDOMEN: Soft, nontender, nondistended, no guarding, no rebound, hypoactive bowel sounds EXTREMITIES: 2+ pulses, warm, well-perfused, no edema. UE strength 5/5 b/l and LE strength 5/5. Sensation decreased on inner thighs on palpation. Decreased sensation on b/l feet. NEUROLOGICAL: Normal speech, gait not observed. PSYCH: Normal mood, normal affect. SKIN: Warm, dry, normal turgor, no rashes or lesions noted Laboratory Results - last 24 hr 06/28/20 06/28/20 06:00 06:00 WBC 15.0 H RBC 2.85 L Hgb 9.2 L Hct 26.9 L MCV 94.5 MCH 32.3 MCHC 34.2 RDW 14.0 Plt Count 183 D MPV 8.6 Sodium 137 Potassium 3.8 Chloride 104 Carbon Dioxide 28 Anion Gap 5 L BUN 13.0 Creatinine 0.6 Est GFR (CKD-EPI)AfAm 124.02 Est GFR (CKD-EPI)NonAf 107.00 Random Glucose 109 H Calcium 6.9 L* Phosphorus 1.4 L Magnesium 1.6 L Albumin 2.2 L Active Medications Generic Name Dose Route Start Last Admin Trade Name Freq PRN Reason Stop Dose Admin Benzocaine/Menthol 1 each 06/26/20 23:44 Cepacol Lozenge - MM PRN PRN SORE THROAT Chlorhexidine Gluconate 1 applic 06/27/20 22:00 06/27/20 21:23 Hibiclens For Decolonization - TP 1 applic HS [facility] Administration Diphenhydramine HCl 25 mg 06/26/20 23:44 Benadryl - PO Q6H PRN FOR ITCHING Docusate Sodium 100 mg 06/27/20 06:00 06/28/20 13:09 Colace - PO 100 mg TID [facility] Administration Famotidine 20 mg 06/26/20 23:36 Pepcid - PO DAILY PRN INDIGESTION Ferrous Sulfate 325 mg 06/27/20 08:00 06/28/20 09:05 Feosol - PO 325 mg 0800 [facility] Administration Folic Acid 1 mg 06/27/20 10:00 06/28/20 09:03 Folic Acid - PO 1 mg DAILY [facility] Administration Heparin Sodium (Porcine) 5,000 unit 06/27/20 08:00 06/28/20 13:10 Heparin - SQ 5,000 unit TID [facility] Administration Sodium Chloride 1,000 mls @ 83 mls/hr 06/26/20 23:36 06/28/20 02:06 Normal Saline - IV Not Given ASDIR [facility] Cefazolin Sodium 1 gm in 50 mls @ 100 mls/hr 06/27/20 10:00 06/28/20 09:03 Ancef 1 Gm Premixed Ivpb - IVPB 100 mls/hr Q8H-IV [facility] Administration Sodium Phosphate 40 mm/ Sodium 513.3333 mls @ 62.5 mls/hr 06/28/20 10:00 06/28/20 11:03 Chloride IVPB 06/28/20 18:12 62.5 mls/hr ONCE ONE Administration Mupirocin 1 applic 06/27/20 10:00 06/28/20 11:03 Bactroban Ointment (For Decolonization) - NS 07/02/20 09:59 1 applic BID [facility] Administration Ondansetron HCl 4 mg 06/26/20 23:36 Zofran Injection IVPUSH Q6H PRN NAUSEA Oxycodone HCl 5 mg 06/28/20 08:33 06/28/20 09:03 Roxicodone - PO 06/29/20 08:32 5 mg Q3H PRN Administration PAIN LEVEL 4 - 6 Polyethylene Glycol 17 gm 06/27/20 06:00 Miralax (For Daily Use) - PO DAILY PRN CONSTIPATION -XR Lspine(05/19/20): some vertebral wedging of lower thoracic and upper lumbar spine -MRI T-spine/L-spine(05/20/20): multilevel significant b/l ligamentum flavum hypertrophy, resulting in severe canal stenosis at T8-T9 level, displacing the thoracic cord w/ cord compression and minimal intradural cord ASSESSMENT/PLAN: 65 YO M with PMH of Rickets presents to the ED for worsening bilateral LE dysfunction and emergent imaging (06/20/20) indicating cord compression of the T- spine. Dr. Bear performed emergent surgery:T3-T10 decompression/fusion, incidental durotomy. Admitted to ICU for post-op management. Neuro POD#2 for T3-T10 decompression/fusion, incidental durotomy for T-spine cord compression -s/p dexamethasone - s/p hydromorphone [employer]. On oxycodone PO - MAN drain in place. surgery consult appreciated. Will switch MAN to bile bag. - [id number] read of CT spine s/p surgery showed s/p decompression severe stenosis T8, which appears markedly improved. Awaiting official report. - TLSO Brace ordered - OOB to chair with assist - PT Pulm - saturation 99% on RA - encourage incentive spirometry use Cardio - cardiac monitoring ID - IVPB cefazolin post op - Covid rapid PCR negative - Covid antibody test negative Renal - 2410 ml I's/1250 O's/ 1160 balance -continue monitoring I&Os and for signs of urinary hesitancy/retention. Consider bladder scan GI - Colace & Miralax for constipation - Zofran for nausea - Pepsid + Famotidine DVT ppx - heparin TID sq - SCDs GI ppx famotidine po daily FEN -no IVF - monitor lytes - regular diet as per surgery Dispo -transfer to med surg Visit type - Emergency Visit Emergency Visit: Yes ED Registration Date: 06/26/20 Care time: The patient presented to the Emergency Department on the above date and was hospitalized for further evaluation of their emergent condition. - New Patient This patient is new to me today: No - Critical Care Critical Care patient: No ATTENDING PHYSICIAN STATEMENT I saw and evaluated the patient. I reviewed the resident's note and discussed the case with the resident. I agree with the resident's findings and plan as documented. SUBJECTIVE: OBJECTIVE: ASSESSMENT AND PLAN:
[2020-06-28] MEDS ORDERED: POLYETHYLENE GLYCOL 3350 119 GM BTL PO PRN (14:36)
[2020-06-28] MEDS ORDERED: FAMOTIDINE 20 MG TABLET PO PRN (14:36)
[2020-06-28] MEDS ORDERED: diphenhydrAMINE HCL 25 MG CAPSULE (FP) PO PRN (14:36)
[2020-06-28] MEDS ORDERED: BENZOCAINE/MENTH/CETYLPYRD CL 1 EACH LOZENGE MM PRN (14:36)
--- NOTE | 2020-06-28 14:38 | SURG ---
Surgery Informaticist Note Informaticist: Keisha Bey PA-C (Suzy) Date of Service: 06/26/20 Diagnosis: thoracic stenosis with severe spinal cord compression Procedure: 1. T2 laminectomy 2. T3 laminectomy 3. T4 laminectomy 4. T5 laminectomy 5. T6 laminectomy 6. T7 laminectomy 7. T8 laminectomy 8. T9 laminectomy 9. T10 laminectomy 10. Micrdissection 11. Local autograft 12. bilateral soft tissue advancement flaps 13. Arthrodesis T23 Posterior/Lateral 14. Arthrodesis T34 Posterior/Lateral 15. Arthrodesis T45 Posterior/Lateral 16. Arthrodesis T67 Posterior/Lateral 17. Arthrodesis T78 Posterior/Lateral 18. Arthrodesis T89 Posterior/Lateral 19. Arthrodesis T9-10 Posterior/Lateral 20. Correction of deformity 21. Posterior segmental instrumentation 22. Repair of durotomy I was present for the entirety of the operative procedure. For further detail, please refer to operative report. Visit type - Case Type Case Type: Scheduled - Emergency Emergency Visit: Yes ED Registration Date: 06/26/20 Care time: The patient presented to the Emergency Department on the above date and was hospitalized for further evaluation of their emergent condition. - New patient This patient is new to me today: Yes Date on this admission: 06/28/20 - Critical Care Critical Care patient: No
[2020-06-28] MEDS ORDERED: ONDANSETRON 4 MG/2 ML VIAL ONE (15:20)
[2020-06-28] MEDS: ONDANSETRON 4 MG/2 ML VIAL IVPUSH PRN (15:21)
[2020-06-28] MEDS: FAMOTIDINE 20 MG TABLET PO SCH (18:09)
[2020-06-28] MEDS: oxyCODONE HCL 5 MG TABLET PO PRN (20:54)
--- NOTE | 2020-06-28 21:41 | PN ---
Teaching Attending Note Name of Resident: Sarahi Ayala ATTENDING PHYSICIAN STATEMENT I saw and evaluated the patient. I reviewed the resident's note and discussed the case with the resident. I agree with the resident's findings and plan as documented. SUBJECTIVE: Patient seen and examined at bedside, s/p spinal cord decompression w/ T2-T10 laminectomy/repair POD#2 now OOB to chair, endorses "tightness" in lower back but denies overt pain. VSS. OBJECTIVE: GA short stature, sitting in chair, mild distress HEENT NC/aT, dry MM, neck supple Chest CTAB, no crackles CVS s1, S2+, RRR Abd Soft, NT, ND, decreased BS Ext no LE edema, bowed legs, moving all 4 ext. Back with surgical dressing. Vital Signs (72 hours) 06/26/20 06/26/20 06/26/20 11:41 13:21 21:37 Temperature 98.3 F Pulse Rate 95 H Pulse Rate [ 82 95 H Right Radial] Respiratory 18 18 18 Rate Blood Pressure 150/84 Blood Pressure 183/95 H 151/80 [Left Arm] O2 Sat by Pulse 100 100 100 Oximetry (%) 06/26/20 06/26/20 06/26/20 21:50 22:05 22:20 Temperature Pulse Rate 92 H 96 H 96 H Pulse Rate [ Right Radial] Respiratory 16 16 18 Rate Blood Pressure 158/77 162/72 160/80 Blood Pressure [Left Arm] O2 Sat by Pulse 100 100 100 Oximetry (%) 06/26/20 06/26/20 06/27/20 22:35 23:58 00:03 Temperature 98.2 F 99.4 F 99.4 F Pulse Rate 96 H 94 H 83 Pulse Rate [ Right Radial] Respiratory 20 20 20 Rate Blood Pressure 155/87 162/85 162/85 Blood Pressure [Left Arm] O2 Sat by Pulse 100 100 100 Oximetry (%) 06/27/20 06/27/20 06/27/20 00:15 01:50 02:03 Temperature Pulse Rate 86 92 H 92 H Pulse Rate [ Right Radial] Respiratory 14 16 16 Rate Blood Pressure 168/68 144/76 144/76 Blood Pressure [Left Arm] O2 Sat by Pulse 99 100 100 Oximetry (%) 06/27/20 06/27/20 06/27/20 03:50 04:00 05:50 Temperature 98.2 F Pulse Rate 98 H 72 72 Pulse Rate [ Right Radial] Respiratory 20 15 15 Rate Blood Pressure 150/71 150/71 150/71 Blood Pressure [Left Arm] O2 Sat by Pulse 99 99 99 Oximetry (%) 06/27/20 06/27/20 06/27/20 06:00 08:00 10:00 Temperature 99.0 F Pulse Rate 97 H 90 96 H Pulse Rate [ Right Radial] Respiratory 13 16 Rate Blood Pressure 171/72 H 161/75 152/72 Blood Pressure [Left Arm] O2 Sat by Pulse 99 98 Oximetry (%) 06/27/20 06/27/20 06/27/20 12:00 14:00 16:00 Temperature 97.9 F Pulse Rate 93 H 98 H 62 Pulse Rate [ Right Radial] Respiratory 18 16 16 Rate Blood Pressure 138/69 148/73 103/68 Blood Pressure [Left Arm] O2 Sat by Pulse 99 100 Oximetry (%) 06/27/20 06/27/20 06/27/20 17:41 20:00 21:00 Temperature 97 F L 99.4 F Pulse Rate 100 H 88 Pulse Rate [ Right Radial] Respiratory 16 15 Rate Blood Pressure 130/64 136/64 Blood Pressure [Left Arm] O2 Sat by Pulse 99 100 Oximetry (%) 06/27/20 06/28/20 06/28/20 22:00 00:00 01:49 Temperature Pulse Rate 91 H 81 85 Pulse Rate [ Right Radial] Respiratory 13 13 14 Rate Blood Pressure 130/63 133/63 121/59 L Blood Pressure [Left Arm] O2 Sat by Pulse 98 98 Oximetry (%) 06/28/20 06/28/20 06/28/20 02:00 02:19 02:49 Temperature Pulse Rate 84 84 84 Pulse Rate [ Right Radial] Respiratory 15 15 15 Rate Blood Pressure 121/59 L 121/59 L 121/59 L Blood Pressure [Left Arm] O2 Sat by Pulse 98 98 98 Oximetry (%) 06/28/20 06/28/20 06/28/20 03:19 03:49 04:00 Temperature 98.6 F Pulse Rate 84 83 83 Pulse Rate [ Right Radial] Respiratory 15 16 14 Rate Blood Pressure 121/59 L 130/61 130/61 Blood Pressure [Left Arm] O2 Sat by Pulse 98 98 98 Oximetry (%) 06/28/20 06/28/20 06/28/20 04:19 04:49 05:19 Temperature Pulse Rate 83 83 83 Pulse Rate [ Right Radial] Respiratory 16 16 16 Rate Blood Pressure 130/61 130/61 130/61 Blood Pressure [Left Arm] O2 Sat by Pulse 98 98 98 Oximetry (%) 06/28/20 06/28/20 06/28/20 05:48 06:00 06:19 Temperature Pulse Rate 82 90 96 H Pulse Rate [ Right Radial] Respiratory 16 16 18 Rate Blood Pressure 130/61 133/64 133/64 Blood Pressure [Left Arm] O2 Sat by Pulse 98 98 98 Oximetry (%) 06/28/20 06/28/20 06/28/20 06:49 08:00 10:00 Temperature Pulse Rate 86 96 H 74 Pulse Rate [ Right Radial] Respiratory 18 16 16 Rate Blood Pressure 133/64 145/64 135/59 L Blood Pressure [Left Arm] O2 Sat by Pulse 98 Oximetry (%) 06/28/20 06/28/20 06/28/20 12:00 14:00 14:42 Temperature 98 F 98 F Pulse Rate 84 82 70 Pulse Rate [ Right Radial] Respiratory 16 16 16 Rate Blood Pressure 142/72 141/56 L Blood Pressure [Left Arm] O2 Sat by Pulse Oximetry (%) 06/28/20 06/28/20 06/29/20 20:00 21:00 00:00 Temperature 98.4 F Pulse Rate 79 88 Pulse Rate [ Right Radial] Respiratory 19 16 Rate Blood Pressure 117/66 123/58 L Blood Pressure [Left Arm] O2 Sat by Pulse 98 98 Oximetry (%) 06/29/20 06/29/20 06/29/20 04:00 08:44 09:01 Temperature 98.4 F Pulse Rate 87 85 Pulse Rate [ Right Radial] Respiratory 19 19 18 Rate Blood Pressure 126/54 L 141/65 Blood Pressure [Left Arm] O2 Sat by Pulse 99 99 100 Oximetry (%) Microbiology 06/26/20 13:27 Urine - Urine Clean Catch Urine Culture - Final NO GROWTH OBTAINED Laboratory Results - last 24 hr 06/28/20 06/29/20 06/29/20 06:00 06:25 06:25 WBC 14.7 H RBC 2.90 L Hgb 9.0 L Hct 27.0 L MCV 93.2 MCH 31.1 MCHC 33.4 RDW 13.4 Plt Count 222 D MPV 8.2 Sodium 137 138 Potassium 3.8 3.2 L Chloride 104 105 Carbon Dioxide 28 27 Anion Gap 5 L 6 L BUN 13.0 12.6 Creatinine 0.6 0.6 Est GFR (CKD-EPI)AfAm 124.02 124.02 Est GFR (CKD-EPI)NonAf 107.00 107.00 Random Glucose 109 H 122 H Calcium 6.9 L* 7.6 L Phosphorus 1.4 L 1.2 L Magnesium 1.6 L 2.4 Albumin 2.2 L Home Medications Medication Instructions Recorded Lisinopril/Hydrochlorothiazide 1 each PO DAILY 06/28/20 [Lisinopril-Hctz 20-25 mg Tab] Current Medications Generic Name Dose Route Start Last Admin Trade Name Freq PRN Reason Stop Dose Admin Benzocaine/Menthol 1 each 06/28/20 14:36 Cepacol Lozenge - MM PRN PRN SORE THROAT Diphenhydramine HCl 25 mg 06/28/20 14:36 06/28/20 20:57 Benadryl - PO 25 mg Q6H PRN Administration FOR ITCHING Docusate Sodium 100 mg 06/28/20 22:00 06/29/20 06:35 Colace - PO 100 mg TID [facility] Administration Famotidine 20 mg 06/28/20 17:31 06/29/20 09:15 Pepcid - PO 20 mg DAILY [facility] Administration Ferrous Sulfate 325 mg 06/29/20 08:00 06/29/20 09:15 Feosol - PO 325 mg 0800 [facility] Administration Folic Acid 1 mg 06/29/20 10:00 06/29/20 09:16 Folic Acid - PO 1 mg DAILY [facility] Administration Heparin Sodium (Porcine) 5,000 unit 06/28/20 22:00 06/29/20 06:35 Heparin - SQ 5,000 unit TID [facility] Administration Cefazolin Sodium 1 gm in 50 mls @ 100 mls/hr 06/28/20 18:00 06/29/20 09:16 Ancef 1 Gm Premixed Ivpb - IVPB 100 mls/hr Q8H-IV [facility] Administration Sodium Chloride 1,000 mls @ 83 mls/hr 06/28/20 14:36 06/28/20 14:43 Normal Saline - IV 83 mls/hr ASDIR [facility] Administration Sodium Phosphate 30 mm/ Sodium 260 mls @ 65 mls/hr 06/29/20 07:45 Chloride IVPB 06/29/20 11:44 ONCE ONE Ondansetron HCl 4 mg 06/28/20 14:36 06/29/20 08:05 Zofran Injection IVPUSH 4 mg Q6H PRN Administration NAUSEA Polyethylene Glycol 17 gm 06/28/20 14:36 06/29/20 06:35 Miralax (For Daily Use) - PO 17 grams DAILY PRN Administration CONSTIPATION Potassium Phos/Sodium Phos 1 packet 06/29/20 07:45 06/29/20 08:08 Phos-Nak Packet - PO 06/30/20 06:00 1 packet TID [facility] Administration ASSESSMENT AND PLAN: 65 M Acute spinal cord compression s/p decompression s/p T2-t10 laminectomy/durotomy/revision/repair POD#2 Diffuse L-spine radiculopathy Congenital rickets Vit D deficiency Plan: Pain control with opioids/muscle relaxants Supplement aggressive bowel regimen Start Vit D/Calcium supplements in view of surgery and h/o rickets, also follow and correct Phosphate Perioperative abx w/ Cefazolin Correct electrolytes NSG team following DVT ppx: Heparin SC per NSG recommendations
[2020-06-29] MEDS: CEFAZOLIN 1 GM/D5W 1 GM/50 ML BAG IVPB SCH ×3 (01:22→17:54)
[2020-06-29] MEDS: oxyCODONE HCL 5 MG TABLET PO PRN ×5 (01:22→23:51)
[2020-06-29] MEDS: DOCUSATE SODIUM 100 MG CAPSULE (FP) PO SCH ×3 (06:35→22:08)
[2020-06-29] MEDS: HEPARIN NA (PORCINE) 5,000 UNITS/ML 1ML VIAL SQ SCH ×3 (06:35→22:08)
[2020-06-29 07:09] LABS: MCH 31.1 pg (25.7-33.7); MCHC 33.4 g/dl (32.0-35.9); MEAN CELL VOLUME 93.2 fl (80-96); MEAN PLT VOLUME 8.2 fl (7.5-11.1); PLATELET COUNT 222 K/MM3 (134-434); RDW 13.4 % (11.9-15.9); WHITE BLOOD COUNT 14.7 K/mm3 (4.0-10.0)
[2020-06-29 07:27] LABS: BLOOD UREA NITROGEN 12.6 mg/dL (7-18); CALCIUM 7.6 mg/dL (8.5-10.1); CREATININE 0.6 mg/dL (0.55-1.3); MAGNESIUM 2.4 mg/dL (1.8-2.4); POTASSIUM 3.2 mmol/L (3.5-5.1)
[2020-06-29] MEDS ORDERED: POTASSIUM CHLORIDE TABS 20 MEQ TABLET.ER (FP) PO ONE (07:34)
[2020-06-29 07:43] LABS: PHOSPHOROUS 1.2 mg/dL (2.5-4.9)
[2020-06-29] MEDS ORDERED: SODIUM PHOSPHATE - 30 MM in SODIUM CHLORIDE 250 ML IVPB ONE (07:45)
[2020-06-29] MEDS ORDERED: FERROUS SO4 325 MG TABLET (FP) PO SCH (08:00)
[2020-06-29] MEDS: ONDANSETRON 4 MG/2 ML VIAL IVPUSH PRN (08:05)
[2020-06-29] MEDS: NAPH,MB-DB/K PH,MBDB POWDER PACKET PO SCH ×3 (08:08→22:08)
--- NOTE | 2020-06-29 08:36 | PN ---
Progress Note (short form) - Note Progress Note: NEUROSURGERY POD #3 In bed lying on left side. C/o nausea, mild headache and 10/10 incisional pain His MAN was switched over to bile bag yesterday. Continues to get OOB and ambulate. Voiding spontaneously without difficulty Denies n/v/f/c, CP, palpitations, SOB or ALVAREZ. Last Vital Signs Temp Pulse Resp BP Pulse Ox 98.4 F 87 19 126/54 L 99 06/29/20 04:00 06/29/20 04:00 06/29/20 04:00 06/29/20 04:00 06/29/20 04:00 CBC, BMP 06/29/20 06:25 06/29/20 06:25 24 Hr Output 06/28/20 06/28/20 06/28/20 06/28/20 06/29/20 06:00 07:44 10:45 15:00 05:48 Bile Bag 120 150 80 100 125 PE GEN: sleeping. resting comfortably BACK: (dressing taken down on rounds) Surgical incision approximated. dermabond intact. No evidence of infection or hematoma. Drain stripped (output as above) Mix of CSF > serosanguinous NEURO: GMNVI bilat LE: SCDs bilat A/P: 65M w/ pmh of Rickets presents to [facility] for concern of increasing severity of BLE dysfunction, with emergent imaging(06/20/20) indicating cord compression of the T-spine. Now, POD #3 s/p T3-T10 decompression/fusion, repair incidental durotomy w/ muscle patch - New dressing applied - Regular diet - DVT PPx - TLSO - OOB and ambulate - PT - Pain management - Bile bag to gravity - IV ABX to cont while drain remains in - Incentive spirometer - Bowel regimen - Antiemetics prn - Tylenol for fever > 100.4F - Hypokalemia; K-DUR 40 meq PO x1 ordered; BMP in AM - Downgrade to floor (Dr. Bear prefers 8th floor) Above plan discussed with Dr. Bear and agrees. Problem List - Problems (1) Cord compression Code(s): G95.20 - UNSPECIFIED CORD COMPRESSION (2) Weakness Code(s): R53.1 - WEAKNESS
[2020-06-29] MEDS: FAMOTIDINE 20 MG TABLET PO SCH (09:15)
[2020-06-29] MEDS ORDERED: FOLIC ACID 1 MG TABLET (FP) PO SCH (10:00)
[2020-06-29] MEDS: SODIUM CHLORIDE 1,000 ML IV SCH ×2 (12:40→14:29)
--- NOTE | 2020-06-29 13:12 | PN ---
Teaching Attending Note Name of Resident: Leno Hartman ATTENDING PHYSICIAN STATEMENT I saw and evaluated the patient. I reviewed the resident's note and discussed the case with the resident. I agree with the resident's findings and plan as documented. SUBJECTIVE: Seen and examined at bedside. Patient is alert and oriented x3, has 5 out of 5 strength in both extremities. Ambulating out of bed and voiding spontaneously. States he had nausea and vomiting yesterday but has resolved today. OBJECTIVE Last Vital Signs Temp Pulse Resp BP Pulse Ox 98.2 F 84 18 134/56 L 100 06/29/20 10:51 06/29/20 10:51 06/29/20 10:51 06/29/20 10:51 06/29/20 10:51 PE: Per resident note Labs/Imaging: reviewed ASSESSMENT/PLAN 62-year-old male with a history of rickets presents to the ED with falls and bilateral lower extremity dysfunction and found to have cord compression of this T-spine. Status post T3T10 decompression/fusion #Spinal compression status post emergent neurosurgery T3-T10 Surgery on board: Appreciate recommendations Physical therapy Bag draining fluid Pain control Status post 3 doses cefazolin Bowel regimen PRN nausea treatment #Acute blood loss anemia Clinically stable: Continue to monitor #Hypophosphatemia: Repleted #Hypomagnesemia: Repleted #Hypokalemia: Repleted
[2020-06-29] MEDS: ACETAMINOPHEN 500 MG TABLET (FP) PO SCH ×2 (14:27→19:12)
[2020-06-29] MEDS ORDERED: ONDANSETRON 4 MG/2 ML VIAL IVPUSH PRN (18:55)
[2020-06-29] MEDS ORDERED: POLYETHYLENE GLYCOL 3350 119 GM BTL PO PRN (18:55)
[2020-06-29] MEDS ORDERED: BENZOCAINE/MENTH/CETYLPYRD CL 1 EACH LOZENGE MM PRN (18:55)
[2020-06-29] MEDS ORDERED: diphenhydrAMINE HCL 25 MG CAPSULE (FP) PO PRN (18:55)
[2020-06-29] MEDS: HYDROmorphone *PCA* 10MG/50ML DISP.SYRIN PCA SCH (19:01)
--- NOTE | 2020-06-29 19:22 | PN ---
Physical Exam: SUBJECTIVE: Patient seen and examined at bedside in ICU. Endorses nausea overnight with episode of vomiting. OBJECTIVE: Vital Signs Period Temp Pulse Resp BP Sys/William Pulse Ox Last 24 Hr 98.1 F-98.4 F 79-99 16-87 117-167/54-78 98-100 GENERAL: NAD HEAD: Normal with no signs of trauma. EYES: EOMI Sclera Clear ENT: MMM NECK: Trachea midline, full range of motion, supple. LUNGS: CTAB HEART: RRR S1S2 No MRG ABDOMEN: Soft, NDNT. Bile bag with serosanguineous fluid. EXTREMITIES: No CCE. NEUROLOGICAL: Cranial nerves II through XII grossly intact. SILT throughout. Strength 5/5 bilaterally. PSYCH: Normal mood, normal affect. SKIN: Warm, dry, normal turgor, no rashes or lesions noted Laboratory Results - last 24 hr 06/29/20 06/29/20 06:25 06:25 WBC 14.7 H RBC 2.90 L Hgb 9.0 L Hct 27.0 L MCV 93.2 MCH 31.1 MCHC 33.4 RDW 13.4 Plt Count 222 D MPV 8.2 Sodium 138 Potassium 3.2 L Chloride 105 Carbon Dioxide 27 Anion Gap 6 L BUN 12.6 Creatinine 0.6 Est GFR (CKD-EPI)AfAm 124.02 Est GFR (CKD-EPI)NonAf 107.00 Random Glucose 122 H Calcium 7.6 L Phosphorus 1.2 L Magnesium 2.4 Active Medications Generic Name Dose Route Start Last Admin Trade Name Freq PRN Reason Stop Dose Admin Acetaminophen 1,000 mg 06/29/20 13:30 06/29/20 19:12 Tylenol - PO 1,000 mg Q6H KERMIT Administration Benzocaine/Menthol 1 each 06/29/20 18:55 Cepacol Lozenge - MM PRN PRN SORE THROAT Diphenhydramine HCl 25 mg 06/29/20 18:55 Benadryl - PO Q6H PRN FOR ITCHING Docusate Sodium 100 mg 06/29/20 22:00 Colace - PO TID KERMIT Famotidine 20 mg 06/28/20 17:31 06/29/20 09:15 Pepcid - PO 20 mg DAILY KERMIT Administration Ferrous Sulfate 325 mg 06/30/20 08:00 Feosol - PO DAILY@0800 KERMIT Folic Acid 1 mg 06/30/20 10:00 Folic Acid - PO DAILY KERMIT Heparin Sodium (Porcine) 5,000 unit 06/29/20 22:00 Heparin - SQ TID KERMIT Cefazolin Sodium 1 gm/ 50 mls @ 100 mls/hr 06/30/20 02:00 Dextrose IVPB 06/30/20 10:29 Q8H-IV KERMIT Ondansetron HCl 4 mg 06/29/20 18:55 Zofran Injection IVPUSH Q6H PRN NAUSEA Oxycodone HCl 5 mg 06/29/20 13:19 06/29/20 14:25 Roxicodone - PO 5 mg Q6H PRN Administration PAIN LEVEL 7 - 10 Polyethylene Glycol 17 gm 06/29/20 18:55 Miralax (For Daily Use) - PO DAILY PRN CONSTIPATION Potassium Phos/Sodium Phos 1 packet 06/29/20 07:45 06/29/20 14:29 Phos-Nak Packet - PO 06/30/20 06:00 1 packet TID KERMIT Administration MRI T-spine/L-spine(05/20/20): multilevel significant b/l ligamentum flavum hypertrophy, resulting in severe canal stenosis at T8-T9 level, displacing the thoracic cord w/ cord compression and minimal intradural cord ASSESSMENT/PLAN: 62-year-old male with a history of rickets presents to the ED with falls and bilateral lower extremity dysfunction and found to have cord compression of this T-spine. Status post T3T10 decompression/fusion #Spinal compression status post emergent neurosurgery T3-T10 Surgery on board Physical therapy Bag draining fluid. Will continue ABx while drain still in. Pain control Status post 3 doses cefazolin Bowel regimen PRN nausea treatment #Acute blood loss anemia H/H 9.0/27. Trend CBC #Hypophosphatemia: Repleted #Hypomagnesemia: Repleted #Hypokalemia: Repleted #FEN No Fluids Monitor Electrolytes Reg Diet #DVT ppx: HEPSQTID #Dispo Med-Surg Visit type - Emergency Visit Emergency Visit: Yes ED Registration Date: 06/26/20 Care time: The patient presented to the Emergency Department on the above date and was hospitalized for further evaluation of their emergent condition. - New Patient This patient is new to me today: No - Critical Care Critical Care patient: No - Discharge Referral Referred to [facility] Med P.C.: No ATTENDING PHYSICIAN STATEMENT I saw and evaluated the patient. I reviewed the resident's note and discussed the case with the resident. I agree with the resident's findings and plan as documented. SUBJECTIVE: OBJECTIVE: ASSESSMENT AND PLAN:
[2020-06-30] MEDS ORDERED: DEXTROSE 5%-WATER - 50 ML IVPB ONE ×2 (01:14→09:05)
[2020-06-30] MEDS ORDERED: ceFAZolin SODIUM 1 GM VIAL ONE ×2 (01:14→09:05)
[2020-06-30] MEDS: CEFAZOLIN 1 GM in DEXTROSE 5%-WATER - 50 ML IVPB SCH ×2 (01:55→09:24)
[2020-06-30] MEDS: ACETAMINOPHEN 500 MG TABLET (FP) PO SCH ×5 (01:58→18:50)
[2020-06-30] MEDS: HEPARIN NA (PORCINE) 5,000 UNITS/ML 1ML VIAL SQ SCH ×3 (06:38→21:56)
[2020-06-30] MEDS: NAPH,MB-DB/K PH,MBDB POWDER PACKET PO SCH ×3 (06:38→21:56)
[2020-06-30] MEDS: DOCUSATE SODIUM 100 MG CAPSULE (FP) PO SCH ×3 (06:41→21:55)
[2020-06-30 08:04] LABS: HEMOGLOBIN 8.5 GM/dL (11.7-16.9); MCH 31.9 pg (25.7-33.7); MEAN CELL VOLUME 93.7 fl (80-96); MEAN PLT VOLUME 7.6 fl (7.5-11.1); PLATELET COUNT 263 K/MM3 (134-434); RBC 2.66 M/mm3 (4.00-5.60); RDW 13.6 % (11.9-15.9); WHITE BLOOD COUNT 9.7 K/mm3 (4.0-10.0)
[2020-06-30] MEDS: FERROUS SO4 325 MG TABLET (FP) PO SCH (08:20)
[2020-06-30 08:35] LABS: BLOOD UREA NITROGEN 13.7 mg/dL (7-18); CALCIUM 7.8 mg/dL (8.5-10.1); CREATININE 0.6 mg/dL (0.55-1.3); MAGNESIUM 2.1 mg/dL (1.8-2.4); PHOSPHOROUS 1.3 mg/dL (2.5-4.9); POTASSIUM 3.4 mmol/L (3.5-5.1)
[2020-06-30] MEDS ORDERED: PT OWN MED DRAWER 7, Y5N ONE ×2 (09:05→14:59)
[2020-06-30] MEDS: FAMOTIDINE 20 MG TABLET PO SCH (09:19)
[2020-06-30] MEDS: FOLIC ACID 1 MG TABLET (FP) PO SCH (09:19)
[2020-06-30] MEDS: oxyCODONE HCL 5 MG TABLET PO PRN ×2 (09:20→21:54)
[2020-06-30] MEDS ORDERED: oxyCODONE HCL 5 MG TABLET PO PRN (09:58)
--- NOTE | 2020-06-30 10:19 | PN ---
Progress Note (short form) - Note Progress Note: Surgery POD #4 Mutlilevel Thoracic decompression and fusion. Patient seen and examined lying in bed. He states he he having lots of pain at the surgical site with radicular pain and paresthesias down B/l LE. He it also complaining of headaches and states he has not been sleeping. His MAN is connected to a bile bag with 300cc/14 hours. He has been OOB with PT and ambulating. He is Voiding spontaneously without difficulty and denies n/v/f/c, CP, palpitations, SOB or ALVAREZ. Vital Signs Temp 98.4 F 06/30/20 09:00 Pulse 72 06/30/20 09:00 Resp 20 06/30/20 09:00 BP 151/73 06/30/20 09:00 Pulse Ox 97 06/30/20 09:00 Intake & Output 06/29/20 06/29/20 06/30/20 11:59 23:59 11:59 Intake Total 1173 860 10 Output Total 525 975 300 Balance 648 -115 -290 Intake: IV 923 10 10 Normal Saline - 1,000 ml 913 0 @ 83 mls/hr IV ASDIR KERMIT Rx#:[id number] Right Wrist #20 06/26/20 10 10 10 IVPB 50 350 Oral 200 500 Output: Drainage 125 275 300 Upper Posterior Back 125 275 300 Urine 400 700 Void 400 700 Other: Voiding Method Urinal Urinal Urinal # Unmeasured Voids Void 1 Bowel Movement No No No CBC, BMP 06/30/20 07:50 06/30/20 07:50 PE A&Ox3, NAD Unlabored resp on RA BACK: Dressing C/D/I with surrounding tissue intact-no tracking erythema, edema, collection or evidence of d/c. MAN secure in good position with bile bag and @300cc/14Hr of CSF with SS. No evidence of infection or hematoma. Drain stripped (output as above) Mix of CSF > serosanguinous B/L LE 5/5 biceps,triceps and preprint analyst strength. B/L LE compartments soft, supple and non-tender with 5/5 dorsi/plantar flexion and +2 DP pulses Problem List - Problems (1) Cord compression Assessment/Plan: POD #4 patient stable and OOB with PT. Pain not being addressed with current medication after SKIVER MACHINE OPERATOR stopped. Sill has high output from MAN. -Pain medication reviewed and modified - Regular diet - DVT PPx - TLSO - OOB and ambulate - PT - Bile bag to gravity - IV ABX to cont while drain remains in - Incentive spirometer - Bowel regimen - Antiemetics prn - Tylenol for fever > 100.4F - Replete electrolytes as needed. Above plan discussed with Dr. Bear and agrees. Code(s): G95.20 - UNSPECIFIED CORD COMPRESSION
--- NOTE | 2020-06-30 14:45 | PN ---
Teaching Attending Note Name of Resident: Leno Hartman ATTENDING PHYSICIAN STATEMENT I saw and evaluated the patient. I reviewed the resident's note and discussed the case with the resident. I agree with the resident's findings and plan as documented. SUBJECTIVE: Seen and examined at bedside. Patient reports significant pain. Pain regimen i ncreased. Hemoglobin continues to downtrend from 13.4 on admission to 8.5. Currently asymptomatic. If symptomatic or if hemoglobin drops below 8.0 transfuse 1 unit. Drain removed today. Plan to discharge tomorrow if hemodynamically stable OBJECTIVE Last Vital Signs Temp Pulse Resp BP Pulse Ox 98.3 F 80 20 131/54 L 96 06/30/20 13:19 06/30/20 13:19 06/30/20 13:19 06/30/20 13:19 06/30/20 13:19 PE: Per resident note Labs/Imaging: reviewed ASSESSMENT/PLAN 62-year-old male with a history of rickets presents to the ED with falls and bilateral lower extremity dysfunction and found to have cord compression of this T-spine. Status post T3T10 decompression/fusion #Spinal compression status post emergent neurosurgery T3-T10 Surgery on board: Appreciate recommendations Physical therapy drain removed Pain control Status post 3 doses cefazolin Bowel regimen PRN nausea treatment #Acute blood loss anemia Clinically stable: Continue to monitor -transfuse for hgb<8 or symptomatic #Hypophosphatemia: Repleted #Hypomagnesemia: Repleted #Hypokalemia: Repleted Dispo: to [facility] tomorrow if HD stable
[2020-06-30] MEDS ORDERED: POTASSIUM CHLORIDE TABS 20 MEQ TABLET.ER (FP) PO ONE (15:00)
--- NOTE | 2020-06-30 18:57 | PN ---
Physical Exam: SUBJECTIVE: Patient seen and examined at bedside. No acute events overnight. OBJECTIVE: Vital Signs Period Temp Pulse Resp BP Sys/William Pulse Ox Last 24 Hr 98.1 F-99.4 F 72-99 18-87 131-167/54-79 96-100 GENERAL: No acute distress HEAD: Normal with no signs of trauma. EYES: EOMI Sclera Clear ENT: MMM LUNGS: Clear bilaterally HEART: RRR S1S2 No MRG ABDOMEN: Soft, NDNT. Bile bag with serosanguineous fluid. EXTREMITIES: No CCE. NEUROLOGICAL: Cranial nerves II through XII grossly intact. SILT throughout. Strength 5/5 bilaterally. SKIN: Warm, dry, normal turgor, no rashes or lesions noted Laboratory Results - last 24 hr 06/30/20 06/30/20 07:50 07:50 WBC 9.7 RBC 2.66 L Hgb 8.5 L Hct 25.0 L MCV 93.7 MCH 31.9 MCHC 34.0 RDW 13.6 Plt Count 263 MPV 7.6 Sodium 141 Potassium 3.4 L Chloride 107 Carbon Dioxide 29 Anion Gap 5 L BUN 13.7 Creatinine 0.6 Est GFR (CKD-EPI)AfAm 124.02 Est GFR (CKD-EPI)NonAf 107.00 Random Glucose 118 H Calcium 7.8 L Phosphorus 1.3 L Magnesium 2.1 Active Medications Generic Name Dose Route Start Last Admin Trade Name Freq PRN Reason Stop Dose Admin Acetaminophen 1,000 mg 06/29/20 13:30 06/30/20 18:50 Tylenol - PO Not Given Q6H [facility] Benzocaine/Menthol 1 each 06/29/20 18:55 Cepacol Lozenge - MM PRN PRN SORE THROAT Diphenhydramine HCl 25 mg 06/29/20 18:55 Benadryl - PO Q6H PRN FOR ITCHING Docusate Sodium 100 mg 06/29/20 22:00 06/30/20 15:02 Colace - PO 100 mg TID KERMIT Administration Famotidine 20 mg 06/28/20 17:31 06/30/20 09:19 Pepcid - PO 20 mg DAILY KERMIT Administration Ferrous Sulfate 325 mg 06/30/20 08:00 06/30/20 08:20 Feosol - PO 325 mg DAILY@0800 KERMIT Administration Folic Acid 1 mg 06/30/20 10:00 06/30/20 09:19 Folic Acid - PO 1 mg DAILY KERMIT Administration Heparin Sodium (Porcine) 5,000 unit 06/29/20 22:00 06/30/20 15:02 Heparin - SQ 5,000 unit TID KERMIT Administration Ondansetron HCl 4 mg 06/29/20 18:55 Zofran Injection IVPUSH Q6H PRN NAUSEA Oxycodone HCl 5 mg 06/30/20 09:58 Roxicodone - PO Q4H PRN PAIN LEVEL 1-5 Oxycodone HCl 10 mg 06/30/20 09:58 Roxicodone - PO Q4H PRN PAIN LEVEL 6-10 Polyethylene Glycol 17 gm 06/29/20 18:55 Miralax (For Daily Use) - PO DAILY PRN CONSTIPATION Potassium Phos/Sodium Phos 1 packet 06/30/20 15:00 06/30/20 15:02 Phos-Nak Packet - PO 1 packet TID KERMIT Administration MRI T-spine/L-spine(05/20/20): multilevel significant b/l ligamentum flavum hypertrophy, resulting in severe canal stenosis at T8-T9 level, displacing the thoracic cord w/ cord compression and minimal intradural cord ASSESSMENT/PLAN: 62-year-old male with a history of rickets presents to the ED with falls and bilateral lower extremity dysfunction and found to have cord compression of this T-spine. Status post T3T10 decompression/fusion #Spinal compression status post emergent neurosurgery T3-T10 Surgery on board Physical therapy Bag draining fluid. Will continue ABx while drain still in. Pain control Status post 3 doses cefazolin Bowel regimen PRN nausea treatment #Acute blood loss anemia H/H 8.5/25. Trend CBC. Will transfuse if H drops below 8. #FEN No Fluids Monitor Electrolytes Reg Diet #DVT ppx: HEPSQTID #Dispo Med-Surg Visit type - Emergency Visit Emergency Visit: Yes ED Registration Date: 06/26/20 Care time: The patient presented to the Emergency Department on the above date and was hospitalized for further evaluation of their emergent condition. - New Patient This patient is new to me today: No - Critical Care Critical Care patient: No - Discharge Referral Referred to [facility] Med P.C.: No ATTENDING PHYSICIAN STATEMENT I saw and evaluated the patient. I reviewed the resident's note and discussed the case with the resident. I agree with the resident's findings and plan as documented. SUBJECTIVE: OBJECTIVE: ASSESSMENT AND PLAN:
[2020-07-01] MEDS: oxyCODONE HCL 5 MG TABLET PO PRN (01:53)
[2020-07-01] MEDS: ACETAMINOPHEN 500 MG TABLET (FP) PO SCH ×3 (02:14→15:06)
[2020-07-01] MEDS: DOCUSATE SODIUM 100 MG CAPSULE (FP) PO SCH ×2 (06:06→15:07)
[2020-07-01] MEDS: NAPH,MB-DB/K PH,MBDB POWDER PACKET PO SCH ×2 (06:06→15:07)
[2020-07-01] MEDS: HEPARIN NA (PORCINE) 5,000 UNITS/ML 1ML VIAL SQ SCH (06:06)
[2020-07-01] MEDS: FERROUS SO4 325 MG TABLET (FP) PO SCH (08:26)
[2020-07-01 10:38] LABS: HEMATOCRIT 29.1 % (35.4-49); HEMOGLOBIN 9.9 GM/dL (11.7-16.9); MCH 31.7 pg (25.7-33.7); MCHC 33.8 g/dl (32.0-35.9); MEAN CELL VOLUME 93.6 fl (80-96); MEAN PLT VOLUME 7.8 fl (7.5-11.1); PLATELET COUNT 368 K/MM3 (134-434); RBC 3.11 M/mm3 (4.00-5.60); RDW 13.8 % (11.9-15.9)
[2020-07-01 11:20] LABS: BLOOD UREA NITROGEN 10.6 mg/dL (7-18); CALCIUM 8.5 mg/dL (8.5-10.1); CREATININE 0.6 mg/dL (0.55-1.3); MAGNESIUM 1.8 mg/dL (1.8-2.4); PHOSPHOROUS 1.3 mg/dL (2.5-4.9); POTASSIUM 3.5 mmol/L (3.5-5.1)
[2020-07-01] MEDS: FOLIC ACID 1 MG TABLET (FP) PO SCH (11:22)
[2020-07-01] MEDS: FAMOTIDINE 20 MG TABLET PO SCH (11:23)
--- NOTE | 2020-07-01 12:23 | DS ---
Physical Exam: SUBJECTIVE: Pt wants to go home and not rehab. Patient refusing labs at first and refusing to use TLSO brace and IV Zofran. Discussed with patient about using brace and that we needed to check H/H. OBJECTIVE: Vital Signs Period Temp Pulse Resp BP Sys/William Pulse Ox Last 24 Hr 98.1 F-99.1 F 76-88 18-20 126-150/54-79 96-100 PHYSICAL EXAM GENERAL: The patient is awake, alert, and fully oriented, NAD LUNGS: CTA bilaterally, no wheezes, no crackles, no accessory muscle use. HEART: RRR, S1, S2 without murmur ABDOMEN: Soft, NT/ND, no guarding BACK: Bandage overlying surgical incision. no surrounding erythema, no pain with palpation EXTREMITIES: 2+ pulses, warm, well-perfused, no edema. NEUROLOGICAL: Nonfocal exam PSYCH: Normal mood, normal affect. SKIN: Warm, dry, no rashes or lesions noted. LABS Laboratory Results - last 24 hr 07/01/20 07/01/20 09:40 09:40 WBC 12.0 H RBC 3.11 L Hgb 9.9 L Hct 29.1 L D MCV 93.6 MCH 31.7 MCHC 33.8 RDW 13.8 Plt Count 368 D MPV 7.8 Sodium 138 Potassium 3.5 Chloride 106 Carbon Dioxide 26 Anion Gap 6 L BUN 10.6 Creatinine 0.6 Est GFR (CKD-EPI)AfAm 124.02 Est GFR (CKD-EPI)NonAf 107.00 Random Glucose 117 H Calcium 8.5 Phosphorus 1.3 L Magnesium 1.8 HOSPITAL COURSE: Date of Admission:06/26/20 Date of Discharge: 07/01/20 Pt admitted on 06/26 due to new onset neurological signs found at his neurologist who received T3-T10 decompression/fusion, and incidental durotomy with muscle patch emergently with Dr. Bear. Patient's post-operative care involved being placed on TOASTER OPERATOR pump with occassional electrolyte deficiency 2/2 nutrition. In addition, patient had MAN drain until stable which was discontinued by surgical team. Patient's H/H was noted to have downtrended during his stay without any overt bleeding and his blood counts had stabilized without any intervention. Patient had frequently been noncompliant with TLSO brace despite recommendations and it was discussed multiple times to wear his brace per the surgical team recommendations. In addition, it was recommended for him to undergo rehabilitation, however he consistently refused going to [facility] and wished to go home. Patient is being discharged today in stable condition after normalizing H/H and electrolytes. He understands to use Tylenol for PRN pain and will be given 2 days worth of oxycodone 5mg q12hr PRN for severe pain considering his daily use of Oxycodone 5mg for severe pain. Patient understands his follow-up is paramount especially with his surgical care. Information was provided in instructions. Discussed with over phone at patient's request. Minutes to complete discharge: 33 Discharge Summary Problems reviewed: Yes Reason For Visit: SPINAL CORD COMPRESSION WEAKNESS Current Active Problems Cord compression (Acute) Condition: Improved - Instructions Diet, Activity, Other Instructions: MEDICATIONS: Please continue to take Lisinopril-HCTZ 20-25mg once daily for your blood pressure You will be given Zofran 4mg every 8 hours as needed for nausea You will be given 2 days worth of Oxycodone 5mg to take NEEDED every 12 hours for pain until you see your surgeon. Otherwise use Tylenol 650mg maximum 4 times per day to help with pain. Do not drive or use heavy machinery while on prescription pain medications Post Operative Instructions Physical Activity Resume your normal everyday activity as tolerated. No heavy lifting or exercise until seen by your surgeon. You may walk unlimited amounts and climb stairs. You may resume driving the car when you feel safe and comfortable behind the wheel and you are no longer wearing your brace. Do not operate a vehicle while taking narcotic medication. Brace If you had back surgery, wear TLSO Brace whenever out of bed. May remove to sleep and shower. If you had neck surgery, wear surgical collar 23 hr/day. Remove to shower only. Wound Care Keep your incision clean, dry and covered at all times. Apply an occlusive dressing (Saran wrap or Tegaderm) when showering to avoid getting your incision wet. Do not submerge incision or apply ointments or creams. The robi will be removed in the office in 10-14 days post-op. Diet There are no dietary restrictions. Eat healthy, high-fiber foods. Drink 6-8 glasses of liquid each day. This will assist in keeping your bowels regular. Pain Management You may take Tylenol or acetaminophen. Any pain prescription medication ordered should be taken as prescribed for moderate to severe pain. Avoid any ibuprofen (Motrin, Advil, Aleve, Toradol, etc) for 3 months unless otherwise discussed with your surgeon. Call Dr Calabrese for any of the following: Severe pain not relieved by medication Fever of 101 or higher Excessive bleeding or drainage on dressing Inability to urinate Any chest pain or shortness of breath, seek Emergency Care. Call the office to confirm a post-operative appointment for 2-3 weeks post-op David Bear MD [facility] [address] [place] [address] Referrals: David Bear MD, FAANS [Staff Physician] - 1 Week Rima Rene MD [Non Staff, Medical] - Disposition: HOME - Home Medications Comprehensive Discharge Medication List: Ambulatory Orders Lisinopril/Hydrochlorothiazide [Lisinopril-Hctz 20-25 mg Tab] 1 each PO DAILY 06/28/20 This patient is new to me today: Yes Date on this admission: 07/01/20 Emergency Visit: Yes ED Registration Date: 06/26/20 Care time: The patient presented to the Emergency Department on the above date and was hospitalized for further evaluation of their emergent condition. Critical Care patient: No - Discharge Referral Referred to [facility] Med P.C.: No
[2020-07-01 13:50] VITALS: BP 151/79; PULSE 97; TEMP 98.4
== END 2020-07-01 17:10 | disposition home or self-care (01) | DRG 304 ==
LOC: JOR 07:52 → JERBED 08:03 → JICU 23:16 → J8W 06-29 18:44
PROVIDERS: ATTEND Internal Medicine
PROC: B01BZZZ Fluoroscopy of Spinal Cord (ICD-10-PCS; 2020-06-26)
PROC: 4A11X4G Monitoring of Peripheral Nervous Electrical Activity, Intraoperative, External Approach (ICD-10-PCS; 2020-06-26)
PROC: 0JX70ZZ Transfer Back Subcutaneous Tissue and Fascia, Open Approach (ICD-10-PCS; 2020-06-26)
PROC: 0RG7071 Fusion of 2 to 7 Thoracic Vertebral Joints with Autologous Tissue Substitute, Posterior Approach, Posterior Column, Open Approach (ICD-10-PCS; principal; 2020-06-26 15:00)
DX: M48.04 Spinal stenosis, thoracic region (principal); G95.20 Unspecified cord compression; D62 Acute posthemorrhagic anemia; E83.39 Other disorders of phosphorus metabolism; G96.11 Dural tear; E83.42 Hypomagnesemia; E87.6 Hypokalemia; D72.829 Elevated white blood cell count, unspecified; M54.16 Radiculopathy, lumbar region; K59.00 Constipation, unspecified; E55.9 Vitamin D deficiency, unspecified; R11.0 Nausea; R51 Headache; M48.8X4 Other specified spondylopathies, thoracic region
CPT/HCPCS: 36415; 72128-TC; 76000-TC-FY; 80048; 80053; 81003; 82040; 83735; 84100; 85025; 85027; 85610; 85730; 86850; 86900; 86901; 87086; 93005; 93010; 94010; 94760; 97116-GP; 97161-GP; 99285-25; J1644; U0003